=== PATIENT | female | born 1950 | race Caucasian/White ===

== ENCOUNTER 2021-09-26 16:18 | Inpatient (IN) | payer MEDICARE, SELFPAY ==
[2021-09-26] VITALS (8 sets, daily range): BP systolic 122–148; BP diastolic 83–110; PULSE 81–93; RESP 20–30; TEMP 36.2–36.6; O2SAT 90–94; BMI 36.6; BMI 43.1
--- NOTE | 2021-09-26 16:48 | EKG12_ITS ---
Test Reason : SOB Blood Pressure : / mmHG Vent. Rate : 092 BPM Atrial Rate : 092 BPM P-R Int : 188 ms QRS Dur : 062 ms QT Int : 356 ms P-R-T Axes : 069 -20 044 degrees QTc Int : 440 ms Normal sinus rhythm Low voltage QRS Borderline ECG Confirmed by CARL UNGER, DENISE ([id number]), editorial assistant NAHOMY ALLEN ([id number]) on 09/29/2021 10:53:55 AM Referred By: Confirmed By:DENISE HENRY MD
--- NOTE | 2021-09-26 16:49 | ED.VIS.DYS ---
HPI History of Present Illness Chief Complaint: Shortness of Breath Informant: patient and family Narrative Narrative: 71-year-old female history of COPD presented to the emergency room with hypoxia. She notes that this is been progressive over the past 3 weeks. She does note some cough but not really anything particularly different than normal. No reported fevers. No history of CHF or coronary artery disease. She has been using her mother's albuterol MDI without relief. She went to see urgent care and they noted that she was hypoxic in the 70s on room air and cyanotic. She has a history of COPD and has seen a anode rebuilder but she does not know which doctor. She does not wear home oxygen. She quit smoking 2 years ago. [facility] Medical History (Updated 09/26/21 @ 20:[address] Del Delgadillo DO) COPD (chronic obstructive pulmonary disease) Allergy/AdvReac Type Severity Reaction Status Date / Time No Known Allergies Allergy Verified 09/26/21 16:19 Social History (Updated 09/26/21 @ 16:[address] Del Delgadillo DO) Smoking Status: Former smoker substance use type: does not use ROS ROS ED Constitutional Constitutional ED: Denies chills, fever(s) or weight loss Eyes Eyes: Denies change in vision or diplopia ENT ENT ED: Denies ear pain, rhinorrhea or sore throat Cardiovascular Cardiovascular: Denies chest pain, orthopnea, palpitations or racing heartbeat Respiratory/Chest Respiratory/Chest: Reports dyspnea and dyspnea on exertion; Denies cough or orthopnea Gastrointestinal Gastrointestinal: Denies abdominal pain, diarrhea, nausea or vomiting Genitourinary Genitourinary ED: Denies dysuria, hematuria or urinary frequency Musculoskeletal Musculoskeletal: Denies arthralgias or myalgias Integumentary Denies abscess or rash Neurologic Neurologic: Denies headache(s) or weakness Psychiatric Psychiatric: Denies anxiety, depression, suicidal ideation or suicidal thoughts Endocrine Endocrinology: Denies polydipsia, polyphagia or polyuria Allergic/Immunologic Allergic/Immunologic ED: Denies mouth swelling, tongue swelling or urticaria EXAM Physical Exam Const Vital Signs: 09/26/21 16:19 09/26/21 17:17 09/26/21 17:30 Temperature 97.9 F Temperature Source Temporal Pulse Rate 91 93 81 Respiratory Rate 22 H 30 H 20 H Respiratory Effort Respiratory Depth Respiratory Pattern Normal Blood Pressure 148/87 H 136/83 H Blood Pressure Mean 107 100 Pulse Ox 93 91 Oxygen Delivery Method Nasal Cannula Nasal Cannula Oxygen Flow Rate (L/min) 4 3 09/26/21 17:32 Temperature Temperature Source Pulse Rate Respiratory Rate Respiratory Effort Normal Respiratory Depth Normal Respiratory Pattern Normal Blood Pressure Blood Pressure Mean Pulse Ox Oxygen Delivery Method Nasal Cannula Oxygen Flow Rate (L/min) 3 Positive well nourished, well developed and obese General Appearance ED: well developed Nutritional Appearance: obese HEENT Reports normocephalic, head/scalp atraumatic, TM's clear and moist mucous membranes atraumatic Tympanic Membrane ED: Yes TM's clear Eyes PERRL and EOMs intact bilaterally Neck no lymphadenopathy, supple and no JVD Resp normal respiratory effort and clear to auscultation bilaterally Auscultation: diminished lung sounds Cardio regular rate, regular rhythm and no murmurs GI normal to inspection, nondistended, normoactive bowel sounds and non-tender Palpation: soft Back/Spine no CVA tenderness and normal ROM Extremity normal to inspection General Extremety ED: Negative for edema General Extremity: Negative for edema Neuro oriented x3 and CN's II-XII intact bilaterally Sensorium / Orientation: alert Motor Exam: strength 5/5 throughout Psych mental status grossly normal Mood & Affect: Negative for depressed or tearful Skin no rashes or lesions noted and no wounds MDM MDM MDM Narrative Medical decision making narrative: White count 7.5 with a hemoglobin of 17.2 platelet count of 283. CMP showed a creatinine 1.13 and a BUN of 29. Lactic acid is normal at 1. Troponin high-sensitivity is 12. Beta natruretic peptide is 96.4. My interpretation of the chest x-ray is mild pulmonary edema with right pleural effusion. CTA of the chest was obtained which demonstrates right pleural effusion right lower lobe consolidation. No pulmonary embolism noted. There is a pericardial effusion noted. Patient received Rocephin azithromycin. Though I think primarily this may be CHF. Patient received 80 of Lasix IV. Plan is admission as she is requiring about 5 L nasal cannula at the current time. Lab Data Attestation: I reviewed the patient's lab results. Labs: Laboratory Results - last 24 hr 09/26/21 09/26/21 09/26/21 17:17 17:17 17:17 WBC 7.5 RBC 6.50 H Hgb 17.2 H Hct 58.8 H MCV 90.5 MCH 26.5 L MCHC 29.3 L RDW Std Deviation 63.7 H RDW Coeff of Chuy 20.3 H Plt Count 283 MPV 9.2 Immature Gran % (Auto) 0.300 Neut % (Auto) 82.1 H Lymph % (Auto) 10.7 L [place] % (Auto) 6.4 Eos % (Auto) 0.1 Baso % (Auto) 0.4 Absolute Neuts (auto) 6.2 Absolute Lymphs (auto) 0.80 L Nucleated RBC % 0.5 Platelet Estimate ADEQUATE RBC Morphology N CHROM Anisocytosis 2+ PT Cancelled INR Cancelled APTT Cancelled D-Dimer Quant (PE/DVT) Cancelled Sodium 133 L Potassium 5.0 Chloride 99 Carbon Dioxide 30.0 Anion Gap 4 L BUN 29 H Creatinine 1.13 H Estim Creat Clear Calc 36.12 Est GFR (MDRD) Af Amer 61 Est GFR (MDRD) Non-Af 50 L BUN/Creatinine Ratio 25.7 H Glucose 79 Lactic Acid Calcium 8.7 Total Bilirubin 0.80 AST 12 L ALT 19 Alkaline Phosphatase 104 Troponin I High Sens 12 B-Natriuretic Peptide Total Protein 7.4 Albumin 2.7 L Globulin 4.7 H Albumin/Globulin Ratio 0.6 L 09/26/21 09/26/21 09/26/21 17:17 17:17 18:19 WBC RBC Hgb Hct MCV MCH MCHC RDW Std Deviation RDW Coeff of [place] Plt Count MPV Immature Gran % (Auto) Neut % (Auto) Lymph % (Auto) [place] % (Auto) Eos % (Auto) Baso % (Auto) Absolute Neuts (auto) Absolute Lymphs (auto) Nucleated RBC % Platelet Estimate RBC Morphology Anisocytosis PT 15.0 H INR 1.3 APTT 28.8 D-Dimer Quant (PE/DVT) 0.45 Sodium Potassium Chloride Carbon Dioxide Anion Gap BUN Creatinine Estim Creat Clear Calc Est GFR (MDRD) Af Amer Est GFR (MDRD) Non-Af BUN/Creatinine Ratio Glucose Lactic Acid 1.0 Calcium Total Bilirubin AST ALT Alkaline Phosphatase Troponin I High Sens B-Natriuretic Peptide 496.4 H Total Protein Albumin Globulin Albumin/Globulin Ratio Radiography Diagnostic Testing: Clinical Impression(s) from Imaging Studies Chest X-Ray 09/26/21 17:45 IMPRESSION: Cardiomegaly with interstitial edema and small right pleural effusion. Electronically Signed: Todd Hutson MD at 18:32 EDT Tel , Service support , Chest CT 09/26/21 18:58 IMPRESSION: Right pleural effusion associated with right lower lobe consolidation. Cardiomegaly. Atherosclerosis. Pericardial effusion. Electronically Signed: Cecy Hunter MD at 20:00 EDT Tel , Service support , EKG Initial EKG: Attestation: I personally reviewed and interpreted this EKG as follows: Comments: Normal sinus rhythm with a ventricular rate of 92 bpm. Discharge Plan Dx/Rx/DC Orders Clinical Impression: Pleural effusion, CHF (congestive heart failure), Pneumonia, Acute hypoxemic respiratory failure, Pericardial effusion Disposition Disposition: Acute Care [facility]
[2021-09-26] MEDS: Ipratropium/Albuterol Sulfate 3 ML AMPUL.NEB INHALATION (17:17)
[2021-09-26 17:37] LABS: Absolute Neutrophil Count 6.2 X10^3/uL (2.0-7.7); Basophil# 0.03 X10^3/uL; Basophil% 0.4 % (0-1); Eosinophil# 0.01 X10^3/uL; Eosinophils% 0.1 % (0-5); Hemoglobin 17.2 g/dL (12.0-15.0); Lymphocyte % 10.7 % (19-41); Mean Corp Hgb Conc 29.3 g/dL (32-36); Mean Corpuscular Hgb 26.5 pg (27.0-32.0); Mean Corpuscular Volume 90.5 fL (81-99); Mean Platelet Vol. 9.2 fl (6.2-12.0); Monocyte# 0.48 X10^3/uL; Monocyte% 6.4 % (0-10); NRBC Flagged by Analyzer 0.5 % (0-5); Neutrophil # 6.15 X10^3/uL (2.7-7.7); Neutrophil % 82.1 % (47-70); POSITIVE MORPHOLOGY YES; Platelet Count 283 K/mm3 (150-450); RBC Distribution Width CV 20.3 % (11.6-14.6); RBC Distribution Width SD 63.7 fl (35.1-43.9); White Blood Count 7.5 K/mm3 (4.4-11.0)
[2021-09-26 17:43] LABS: Differential Indicated SCAN CRITERIA MET; Hematocrit 58.8 % (37-47)
--- NOTE | 2021-09-26 17:45 | RAD_ITS ---
INDICATION: dyspnea EXAMINATION/TECHNIQUE: X-RAY - XR Chest 1 View COMPARISON: None. FINDINGS: Increased interstitial markings. Tortuous and calcified thoracic aorta. The heart is moderately enlarged. Small right pleural effusion. No pneumothorax. No acute osseous abnormalities. RAD/Chest 1 View (Portable) IMPRESSION: Cardiomegaly with interstitial edema and small right pleural effusion. Electronically Signed: Todd Hutson MD at 18:32 EDT Tel , Service support ,
[2021-09-26 17:46] LABS: BNP,B-Type NATRIURETIC PEPTIDE 496.4 pg/mL (0-100)
[2021-09-26 17:50] LABS: ALB/GLOB Ratio 0.6 RATIO (0.9-2.4); AST(SGOT) 12 U/L (15-37); Alanine Aminotransfer ALT/SGPT 19 U/L (13-56); Albumin, Serum 2.7 g/dL (3.2-5.0); Alkaline Phosphatase 104 U/L (45-117); Anion Gap 4 (5-15); BUN 29 mg/dL (7-18); BUN/Creat Ratio 25.7 RATIO (10-20); Calcium,Total 8.7 mg/dL (8.5-10.1); Chloride 99 mmol/L (98-107); Creatinine, Serum 1.13 mg/dL (0.55-1.02); EST Glomerular Filtration Rate 50 mL/min (>60); Est Glom Filt Rate - Afr Amer 61 mL/min (>60); Estimated Creatinine Clearance 36.12 ml/min; Globulin 4.7 g/dL (2.2-4.2); Glucose 79 mg/dL (74-106); Protein, Total 7.4 g/dL (6.4-8.2); Sodium Level 133 mmol/L (136-145); Troponin-I HS 12 pg/mL (3.0-54.0)
[2021-09-26 18:26] LABS: Anisocytosis 2+; Platelet Estimate ADEQUATE (ADEQ); Red Cell Morphology N CHROM NORMAL (NORM C&C)
[2021-09-26 18:43] LABS: D-Dimer Quantitative (DVT/PE) 0.45 FEU/ug/m (0.27-0.49)
[2021-09-26 18:53] LABS: International Normalized Ratio 1.3
[2021-09-26 18:54] LABS: Partial Thromboplast Time 28.8 Seconds (24.1-36.2)
--- NOTE | 2021-09-26 18:58 | CT_ITS ---
STUDY: CT CHEST WITHOUT CONTRAST REASON FOR EXAM: Female, 71 years old. Dyspnea and hypoxia RADIATION DOSAGE (If Supplied By Facility): CTDIvol = ( 19.39 ) mGy, DLP = ( 654.25 ) mGycm TECHNIQUE: Transaxial imaging was performed without the administration of intravenous contrast material. Multiplanar coronal and sagittal images were reformatted. Individualized dose optimization techniques were used for this CT. COMPARISON: None. FINDINGS: There are emphysematous changes present. There is a right pleural effusion associated with consolidation within the right lower lobe. There is minimal bibasilar atelectasis and/or scarring. There are calcifications of the coronary arteries. There is a pericardial effusion measuring up to 9 mm. There are mitral annulus calcifications. There is cardiomegaly. Normal mediastinum. Normal hilar regions. Normal unenhanced pulmonary arteries. Normal aorta arch and descending thoracic aorta. There are multi-level degenerative changes of the thoracic spine. There is a subcutaneous low-attenuation focus within the lower back right of midline suggestive of a sebaceous cyst. There is no demonstrated abnormality of the visualized upper abdomen. CT/Chest without Contrast IMPRESSION: Right pleural effusion associated with right lower lobe consolidation. Cardiomegaly. Atherosclerosis. Pericardial effusion. Electronically Signed: Cecy Hunter MD at 20:00 EDT Tel , Service support ,
[2021-09-26] MEDS: Ceftriaxone 1 GM/50 ML BAG IV (21:10)
[2021-09-26] MEDS: Furosemide 100 MG/10 ML Vial 80 MG IV (21:10)
--- NOTE | 2021-09-26 21:29 | HP.PCM.HOS_ITS ---
HPI - General General Date of Admission: 09/26/21 Date of Service: 09/26/21 Chief Complaint: shortness of breath HPI Narrative CLIFFORD GALLARDO, is a 71 F who presents presents with 3 weeks of progressive shortness of breath. Urgent care and was found to be hypoxic with pulse ox of 70%. Since emergency room and patient had a CT scan that showed pleural effusion as well as pericardial effusion. In the emergency room, patient received furosemide, ceftriaxone, DuoNeb. Placed on oxygen her pulse ox was around 88 to 91% on 3 L nasal cannula. She is feeling better at this time. She does note that she has a history of COPD but denies any history of CHF. Patient notes that she has been on around 5 to 6 pounds over the past 8 to 10 months and has increasing lower extremity edema. [facility] Medical History COPD (chronic obstructive pulmonary disease) Allergy/AdvReac Type Severity Reaction Status Date / Time No Known Allergies Allergy Verified 09/26/21 16:19 Family History (Updated 09/26/21 @ 21:[address] Zack Rowland DO) Other Heart disease Social History Smoking Status: Former smoker substance use type: does not use ROS ROS Narrative No COVID-19 exposure. No fever or chills. Patient has been vaccinated for COVID-19. All review of systems were negative except as mentioned above in the history of present illness and the other review of systems. Vital Signs Vital Signs Vital Signs: 09/26/21 16:19 09/26/21 17:17 09/26/21 17:30 Temperature 36.6 C Temperature Source Temporal Pulse Rate 91 93 81 Respiratory Rate 22 H 30 H 20 H Respiratory Effort Respiratory Depth Respiratory Pattern Normal Blood Pressure 148/87 H 136/83 H Blood Pressure Mean 107 100 Pulse Ox 93 91 Oxygen Delivery Method Nasal Cannula Nasal Cannula Oxygen Flow Rate (L/min) 4 3 09/26/21 17:32 Temperature Temperature Source Pulse Rate Respiratory Rate Respiratory Effort Normal Respiratory Depth Normal Respiratory Pattern Normal Blood Pressure Blood Pressure Mean Pulse Ox Oxygen Delivery Method Nasal Cannula Oxygen Flow Rate (L/min) 3 Weight Weight: 90.718 kg Body Mass Index (BMI) 36.6 Physical Exam Const alert General Appearance: cooperative HEENT normocephalic and head/scalp atraumatic Eyes PERRL Neck no lymphadenopathy Resp Resp Narrative: bibasilar crackles. diminished Cardio regular rate, regular rhythm, S1 normal heart sound and S2 normal heart sound GI normal to inspection, nondistended, normoactive bowel sounds, soft to palpation, non-tender and non-distended Extremity Extremity Narrative: bilateral taut lower extremity edema. Skin no rashes or lesions noted and no wounds Neuro Sensorium / Orientation: awake and alert Psych affect normal Results Lab / Micro Data Attestation: I reviewed the patient's lab results. Result Diagrams: 09/26/21 17:17 09/26/21 17:17 Labs: Laboratory Results - last 24 hr 09/26/21 17:17: WBC 7.5, RBC 6.50 H, Hgb 17.2 H, Hct 58.8 H, MCV 90.5, MCH 26.5 L, MCHC 29.3 L, RDW Std Deviation 63.7 H, RDW Coeff of Chuy 20.3 H, Plt Count 283, MPV 9.2, Immature Gran % (Auto) 0.300, Neut % (Auto) 82.1 H, Lymph % (Auto) 10.7 L, [place] % (Auto) 6.4, Eos % (Auto) 0.1, Baso % (Auto) 0.4, Absolute Neuts (auto) 6.2, Absolute Lymphs (auto) 0.80 L, Nucleated RBC % 0.5, Platelet Estimate ADEQUATE, RBC Morphology N CHROM, Anisocytosis 2+ 09/26/21 17:17: PT Cancelled, INR Cancelled, APTT Cancelled, D-Dimer Quant (PE/DVT) Cancelled 09/26/21 17:17: Sodium 133 L, Potassium 5.0, Chloride 99, Carbon Dioxide 30.0, Anion Gap 4 L, BUN 29 H, Creatinine 1.13 H, Estim Creat Clear Calc 36.12, Est GFR (MDRD) Af Amer 61, Est GFR (MDRD) Non-Af 50 L, BUN/Creatinine Ratio 25.7 H, Glucose 79, Calcium 8.7, Total Bilirubin 0.80, AST 12 L, ALT 19, Alkaline Phosphatase 104, Troponin I High Sens 12, Total Protein 7.4, Albumin 2.7 L, Globulin 4.7 H, Albumin/Globulin Ratio 0.6 L 09/26/21 17:17: Lactic Acid 1.0 09/26/21 17:17: B-Natriuretic Peptide 496.4 H 09/26/21 18:19: PT 15.0 H, INR 1.3, APTT 28.8, D-Dimer Quant (PE/DVT) 0.45 Micro: Microbiology 09/26/21 18:03 Nasal Secretion SARS-CoV-2 Antigen (Rapid) - Final EKG Initial EKG: Attestation: I personally reviewed and interpreted this EKG as follows: Prior EKG tracings: available for review EKG Rhythm Intrepretation: Sinus Rhythm (low voltage.) Radiology Impression Chest X-Ray 09/26/21 17:45 IMPRESSION: Cardiomegaly with interstitial edema and small right pleural effusion. Electronically Signed: Todd Hutson MD at 18:32 EDT Tel , Service support , Chest CT 09/26/21 18:58 IMPRESSION: Right pleural effusion associated with right lower lobe consolidation. Cardiomegaly. Atherosclerosis. Pericardial effusion. Electronically Signed: Cecy Hunter MD at 20:00 EDT Tel , Service support , Assessment & Plan Assessment/Plan (1) Acute hypoxemic respiratory failure: (2) Pleural effusion: (3) CHF (congestive heart failure): QUALIFIERS: Heart failure type: unspecified Heart failure chronicity: acute Qualified Code(s): I50.9 - Heart failure, unspecified (4) Pericardial effusion: PLAN: 1. Acute hypoxic respiratory failure * Multifactorial due to acute exacerbation of CHF, pleural effusion, pericardial effusion and underlying COPD. May also have underlying sleep apnea but patient is never been diagnosed as such. * Wean oxygen as able * Consider home oxygen evaluation if patient is still requiring oxygen when she is ready for discharge 2. Acute CHF exacerbation * Patient received furosemide in emergency room and will continue on floor * Unclear type at this time, as patient has no prior history of CHF nor any prior echocardiogram * Will check echocardiogram * Make further adjustments such as lisinopril or carvedilol 3. Pleural effusion and pericardial effusion * Patient in no duress clinically no tamponade * Diuresis CHF 4. Possible acute exacerbation of COPD * No audible wheeze of the patient is very diminished * Bronchodilators start prednisone 5. VTE prophylaxis: Moderate risk. Enoxaparin 6. CODE STATUS: Addressed with the patient. Patient wishes to be full code. Charges/Coding Visit Charges Inpatient E&M: 94499 Init Hosp L3
--- NOTE | 2021-09-26 21:45 | ED.RN ---
PT DOES NOT HAVE HOME MEDICATION LIST WITH HER. DOES NOT KNOW HOME MEDS. MED REC INCOMPLETE.
--- NOTE | 2021-09-26 22:09 | ECHOD_ITS ---
Reason For Study: CHF Procedure This was a 2D Doppler, Color Flow transthoracic echocardiogram. The study was technically difficult. Did not use Definity due to increased PAP. Exam performed portable in patient room. Left Ventricle Normal LV size. Mild concentric left ventricular hypertrophy. Left ventricular systolic function is hyperdynamic. The estimated ejection fraction is 75 %. There is evidence of diastolic dysfunction. No regional wall motion abnormalities noted. Right Ventricle Moderately dilated right ventricle. Moderate global right ventricular systolic dysfunction. Atria The left atrium is mildly enlarged. The right atrium is moderately enlarged. No doppler evidence for ASD. Mitral Valve There is severe mitral annular calcification. Extension of the mitral annular calcification onto the base of the posterior mitral valve leaflet. Trivial mitral valve insufficiency. Tricuspid Valve Normal tricuspid valve. Mild tricuspid valve insufficiency. Right ventricular systolic pressure estimated to be 75 mmHg. Aortic Valve Trisinus/trileaflet aortic valve. Mild focal aortic valve calcification. Pulmonic Valve The pulmonic valve is not well visualized. Trivial pulmonic valve insufficiency. Great Vessels Normal sized aortic root. Pericardium/Pleural Trivial pericardial effusion. There are no echocardiographic indications of cardiac tamponade. MMode/2D Measurements & Calculations LVIDd: 3.7 cm IVSd: 1.3 cm LVOT diam: 1.8 cm LVIDs: 2.6 cm LVPWd: 1.3 cm LVOT area: 2.7 cm2 RVDd: 4.9 cm FS: 29.2 % Ao root diam: 2.8 cm LAV(MOD-bp): 49.8 ml LA A4 area: 19.1 cm2 LAV(MOD-bp) Indexed: 26.1 ml/m2 LAV(MOD-sp2): 49.6 ml LAV(MOD-sp4): 48.2 ml LA dimension(2D): 4.0 cm RA A4 area: 28.3 cm2 Time Measurements MV dec time: 0.34 sec Doppler Measurements & Calculations MV E max jai: 162.6 cm/sec Lat Peak E' Jai: 3.5 cm/sec Med Peak E' Jai: 3.7 cm/sec MV A max jai: 196.8 cm/sec E/E' lat: 46.7 E/E' med: 43.4 MV E/A: 0.83 MV V2 max: 214.0 cm/sec MV P1/2t max jai: 159.2 cm/sec Ao V2 max: 209.5 cm/sec MV max P.3 mmHg MV P1/2t: 101.7 msec Ao max P.6 mmHg MV V2 mean: 139.7 cm/sec MV dec slope: 458.6 cm/sec2 Ao V2 mean: 150.3 cm/sec MV mean P.6 mmHg Ao mean P.8 mmHg MV V2 VTI: 54.1 cm MVA(P1/2t): 2.2 cm2 Ao V2 VTI: 42.2 cm MVA(VTI): 1.8 cm2 NATHAN(I,D): 2.3 cm2 NATHAN(V,D): 2.1 cm2 LV V1 max: 165.4 cm/sec SV(LVOT): 97.1 ml PA V2 max: 138.7 cm/sec LV V1 max P.0 mmHg LV V1 mean P.6 mmHg LV V1 mean: 123.7 cm/sec LV V1 VTI: 36.5 cm TR max jai: 387.9 cm/sec TR max P.2 mmHg ECHO/Echo Complete Interpretation Summary The study was technically difficult. Left ventricular systolic function is hyperdynamic. The estimated ejection fraction is 75 %. Mild concentric left ventricular hypertrophy. Moderately dilated right ventricle. Moderate global right ventricular systolic dysfunction. The left atrium is mildly enlarged. The right atrium is moderately enlarged. There is severe mitral annular calcification. Extension of the mitral annular calcification onto the base of the posterior mi tral valve leaflet. Trivial mitral valve insufficiency. Mild tricuspid valve insufficiency. Mild focal aortic valve calcification. Trivial pulmonic valve insufficiency. Trivial pericardial effusion. There are no echocardiographic indications of cardiac tamponade. Right ventricular systolic pressure estimated to be 75 mmHg c/w severe pulmonar y hypertension. There is evidence of diastolic dysfunction. Ordering Physician: Zack Rowland Referring Physician: Mark Henry Performed By: Debra Smith RDCS, RVT
[2021-09-26] MEDS: predniSONE 20 MG Tablet 40 MG PO (22:48)
[2021-09-26] MEDS: guaiFENesin 600 MG Tablet PO (22:48)
[2021-09-26 23:46] LABS: Troponin-I HS 14 pg/mL (3.0-54.0)
[2021-09-27] VITALS (12 sets, daily range): BP systolic 94–148; BP diastolic 51–80; PULSE 86–94; RESP 16–18; TEMP 36.2–37; O2SAT 92–95
--- NOTE | 2021-09-27 07:27 | PCS.PANDOC ---
PANDEMIC DOCUMENTATION INITIATED: Date: 07/07/2021 Time: 190
[2021-09-27 08:39] LABS: Anion Gap 7 (5-15); BUN 31 mg/dL (7-18); BUN/Creat Ratio 27.2 RATIO (10-20); Calcium,Total 8.6 mg/dL (8.5-10.1); Chloride 98 mmol/L (98-107); Cholesterol 64 mg/dL (200); Creatinine, Serum 1.14 mg/dL (0.55-1.02); EST Glomerular Filtration Rate 50 mL/min (>60); Est Glom Filt Rate - Afr Amer 60 mL/min (>60); Glucose 126 mg/dL (74-106); High Density Lipoprotein 35 mg/dL; Potassium 5.7 mmol/L (3.5-5.1); Sodium Level 134 mmol/L (136-145); Thyroid Stim Hormone (TSH) 1.56 uIU/mL (0.358-3.74); Triglycerides 60 mg/dL; Very Low Density Lipoprotein 12 mg/dL (5-40)
[2021-09-27] MEDS: predniSONE 20 MG Tablet 40 MG PO (09:06)
[2021-09-27] MEDS: Enoxaparin 40 MG/0.4 ML Syringe SC (09:06)
[2021-09-27] MEDS: Furosemide 40 MG/4 ML Vial IV ×2 (09:07→17:08)
[2021-09-27] MEDS: 0.9% Saline Lock 10 ML Syringe IV ×2 (09:07→17:08)
[2021-09-27] MEDS: guaiFENesin 600 MG Tablet PO ×2 (09:08→21:34)
[2021-09-27] MEDS: Acetaminophen 325 MG Tablet 650 MG PO (09:08)
[2021-09-27 12:40] LABS: Potassium 5.7 mmol/L (3.5-5.1)
--- NOTE | 2021-09-27 13:06 | PN.HOSP_ITS ---
Documented by User: Gayathri Chavez NP-C 09/27/21 13:22 Subjective Subjective Patient seen and examined. Patient states that she is feeling improved in comparison to presentation to ER. Patient currently on 6 L nasal cannula oxygen satting well. Patient sitting in bed watching TV no distress noted. Objective Data Objective Data Vital Signs: Vital Signs Temp Pulse Resp BP Pulse Ox 98.5 F 91 18 148/80 H 95 09/27/21 12:53 09/27/21 12:53 09/27/21 12:53 09/27/21 12:53 09/27/21 12:53 Oxygen Flow Rate (L/min) 7 Oxygen Delivery Method Nasal Cannula Weight: 238 lb 12.17 oz Body Mass Index (BMI) 43.1 Intake & Output: Intake and Output for Last 24 Hours 09/25/21 09/26/21 09/27/21 23:59 23:59 23:59 Intake Total 305 / 305 300 / 300 Balance 305 / 305 300 / 300 Lab / Micro Data Result Diagrams: 09/26/21 17:17 09/27/21 12:20 Labs: Laboratory Results - last 24 hr 09/26/21 17:17: WBC 7.5, RBC 6.50 H, Hgb 17.2 H, Hct 58.8 H, MCV 90.5, MCH 26.5 L, MCHC 29.3 L, RDW Std Deviation 63.7 H, RDW Coeff of Chuy 20.3 H, Plt Count 283, MPV 9.2, Immature Gran % (Auto) 0.300, Neut % (Auto) 82.1 H, Lymph % (Auto) 10.7 L, [place] % (Auto) 6.4, Eos % (Auto) 0.1, Baso % (Auto) 0.4, Absolute Neuts (auto) 6.2, Absolute Lymphs (auto) 0.80 L, Nucleated RBC % 0.5, Platelet Estimate ADEQUATE, RBC Morphology N CHROM, Anisocytosis 2+ 09/26/21 17:17: PT Cancelled, INR Cancelled, APTT Cancelled, D-Dimer Quant (PE/DVT) Cancelled 09/26/21 17:17: Sodium 133 L, Potassium 5.0, Chloride 99, Carbon Dioxide 30.0, Anion Gap 4 L, BUN 29 H, Creatinine 1.13 H, Estim Creat Clear Calc 36.12, Est GFR (MDRD) Af Amer 61, Est GFR (MDRD) Non-Af 50 L, BUN/Creatinine Ratio 25.7 H, Glucose 79, Calcium 8.7, Total Bilirubin 0.80, AST 12 L, ALT 19, Alkaline Phosphatase 104, Troponin I High Sens 12, Total Protein 7.4, Albumin 2.7 L, Globulin 4.7 H, Albumin/Globulin Ratio 0.6 L 09/26/21 17:17: Lactic Acid 1.0 09/26/21 17:17: B-Natriuretic Peptide 496.4 H 09/26/21 18:19: PT 15.0 H, INR 1.3, APTT 28.8, D-Dimer Quant (PE/DVT) 0.45 09/26/21 22:50: Troponin I High Sens 14 09/27/21 07:20: Sodium 134 L, Potassium 5.7 H, Chloride 98, Carbon Dioxide 29.0, Anion Gap 7, BUN 31 H, Creatinine 1.14 H, Estim Creat Clear Calc 35.80, Est GFR (MDRD) Af Amer 60, Est GFR (MDRD) Non-Af 50 L, BUN/Creatinine Ratio 27.2 H, Glucose 126 H, Calcium 8.6, Triglycerides 60, Cholesterol 64, LDL Cholesterol 17, VLDL Cholesterol 12, HDL Cholesterol 35 L, TSH 1.56 09/27/21 12:20: Potassium 5.7 H Micro: Microbiology 09/26/21 18:03 Nasal Secretion SARS-CoV-2 Antigen (Rapid) - Final Radiography Diagnostic Testing: Radiology Impression Chest X-Ray 09/26/21 17:45 IMPRESSION: Cardiomegaly with interstitial edema and small right pleural effusion. Electronically Signed: Todd Hutson MD at 18:32 EDT Tel , Service support , Chest CT 09/26/21 18:58 IMPRESSION: Right pleural effusion associated with right lower lobe consolidation. Cardiomegaly. Atherosclerosis. Pericardial effusion. Electronically Signed: Cecy Hunter MD at 20:00 EDT Tel , Service support , Physical Exam Const alert, oriented x3 and no apparent distress General Appearance: cooperative HEENT normocephalic and head/scalp atraumatic Head and Scalp: normocephalic Eyes conjunctivae normal and no scleral icterus Neck full ROM, no lymphadenopathy and supple Resp normal respiratory effort and normal air movement Auscultation: rales diffuse and diminished lung sounds bilateral lower Cardio regular rate, regular rhythm, S1 normal heart sound and S2 normal heart sound GI normal to inspection, nondistended, normoactive bowel sounds, soft to palpation, non-tender and non-distended Extremity normal to inspection and full ROM General Extremity: edema bilateral lower extremity Details: severe Peripheral Pulses: Yes pulses 2+ throughout Skin no rashes or lesions noted and no wounds Neuro oriented x3, moves all extremities, no focal motor deficits and no sensory deficits noted Sensorium / Orientation: awake and alert Psych affect normal Assessment & Plan Assessment/Plan (1) CHF (congestive heart failure): QUALIFIERS: Heart failure chronicity: acute Heart failure type: unspecified Qualified Code(s): I50.9 - Heart failure, unspecified (2) Acute hypoxemic respiratory failure: PLAN: 1. Acute hypoxic respiratory failure -Secondary to exacerbation of CHF, pleural effusion, pericardial effusion, COPD -Patient currently on 6 L nasal cannula oxygen, continue to wean as able 2. Acute CHF exacerbation -Continue IV Lasix -1500 mL fluid restriction ordered -Continue lisinopril and hydrochlorothiazide -Echocardiogram ordered 3. Pleural effusion and pericardial effusion -Continue diuresis with Lasix 4. Possible acute exacerbation of COPD -Continue prednisone -Continue as needed albuterol as well scheduled DuoNebs DVT prophylaxis-subcu Lovenox This patient was seen by Gayathri Chavez NP-C under the supervision of Dr. Michaels. Documented by User: Dr. Kaleb Michaels MD 09/27/21 13:53 Objective Data Lab / Micro Data Result Diagrams: 09/26/21 17:17 09/27/21 12:20 Assessment & Plan Addt'l Comments This patient was seen in conjunction with ELIGIO Mueller . I have independently interviewed and examined the patient and reviewed pertinent historical, laboratory, and other data. Please refer to ELIGIO Mueller note for details of this patient's presentation, findings, and recommendations. I have reviewed ELIGIO Mueller note and concur with documented findings. In brief, patient is a 71-year-old lady sent in by PCP with significant hypoxia. She was apparently found to be hypoxic with oxygen saturation of 78% on room air. Imaging studies obtained on admission demonstrated right pleural effusion with associated right lower lobe consolidation as well as pericardial effusion. Admitted to a monitored bed for subsequent management Physical Examination: GENERAL: cooperative HEENT: Atraumatic; EYES; Anicteric, Normal Conjunctiva NECK; supple, normal thyroid, RESPIRATORY: Diminished to auscultation CARDIOVASCULAR: Regular S1 S2, GI: soft, normoactive bowel sounds, : No Renal angle tenderness; EXTREMITIES: No edema, no clubbing, MUSCULOSKELETAL: no muscle waisting NEURO: Awake; no lateralizing signs. SKIN: No Rash PSYCH; Flat affect Assessment: 1. Acute hypoxic respiratory failure 2. Right lower lobe pneumonia (has dense right lower lobe infiltrate, hypoxic, normal WBC count but significant left shift) 3. Suspected congestive heart failure 4. Pericardial effusion 5. COPD with acute exacerbation 6. Morbid obesity with BMI of 43.7 7. Diabetes mellitus type 2 8. Dyslipidemia 9. Essential hypertension Recommendations: 1. I have discussed the results of my overview and impressions with the patient 2. Options for management were reviewed Charges/Coding Visit Charges Inpatient E&M: 98535 Subs Hosp L3
[2021-09-27] MEDS: Sodium Polystyrene Sulfonate 15 GM/60 ML UDC 30 GM PO (14:52)
--- NOTE | 2021-09-27 15:50 | CASEMGMT ---
RN AIDEN [employer] SETTER CM to room to meet with patient for initial transition planning/care coordination assessment. RENITA WOLFE introduced self and role at [facility]. Pt voices understanding and consents to assessment at this time. Pt sitting on edge of bed in no distress at this time. Pt is A/O at this time and answers all questions appropriately. Care providers, pharmacy, and demographics verified/updated at this time. PCP: Dr Henry Specialists: none Preferred Pharmacy: [facility] [employer] Insurance: [employer] Prescription Benefit: Yes Living Will/HPOA: Has both LW and HPOA, who is her grandson, Rehan Loera LNOK: Grandson/POA: Rehan. Mother Living Arrangements: Pt lives w/Rehan and her mother. Independent w/ADL's. Rehan does home mgmt tasks and grocery shopping. Pt manages her own medications and appts. Transportation: Pt states drives self and states no transportation concerns at this time. Rehan also drives. DME: Denies using any DME and denies needs. Mother uses a shower chair that pt could use, if needed. Pt does not have Home O2. Discussed possible need of home O2. Pt was provided with list of DME providers consistent with the patient's preferred geographic region, medical needs, and insurance network. The pt's preferred provider is [facility]. . HHC/SNF: No hx of either. Denies needs of HHC. Pt made aware, if she decides in the future she would like HHC to discuss this w/her PCP. Pt wishes to return home and states has no concerns with going home at time of discharge. CM or nursing to follow for home oxygen needs and any further discharge planning/needs. Pt voices no further concerns/needs at this time. Advised pt to ask for CM if any further questions/concerns/needs arise. Voices understanding. PLAN: Home w/family support and discharge plans in place. Pt states has not been diagnosed w/CHF. Nursing to do CHF teaching. RNMelina, barbara Green sheet placed on chart w/instructions on home O2 set up if pt qualifies for Home O2 @ discharge. Dino JEWELL RN, CM
[2021-09-27 16:16] LABS: M R Staph aureus DNA By PCR Negative (Negative); Probe Check PASS; Specimen Processing Control PASS
[2021-09-27] MEDS: Insulin Lispro 100 UNIT/ML INSULN.PEN SC (16:33)
[2021-09-27 16:35] LABS: Bedside Glucose 177 mg/dL (70-110)
[2021-09-27] MEDS: Albuterol 2.5 MG/3 ML VIAL.NEB. INHALATION (20:39)
[2021-09-27] MEDS: Atorvastatin Calcium 20 MG Tablet PO (21:34)
[2021-09-27 21:45] LABS: Bedside Glucose 133 mg/dL (70-110)
[2021-09-28] VITALS (24 sets, daily range): BP systolic 83–121; BP diastolic 48–64; PULSE 77–105; RESP 16–22; TEMP 35.9–36.8; O2SAT 88–97
[2021-09-28] MEDS: Albuterol 2.5 MG/3 ML VIAL.NEB. INHALATION (00:16)
[2021-09-28] MEDS: MELATONIN 3 MG TABLET PO (00:31)
[2021-09-28] MEDS: Ipratropium/Albuterol Sulfate 3 ML AMPUL.NEB INHALATION ×6 (01:58→22:27)
--- NOTE | 2021-09-28 03:15 | PCS.PANDOC ---
PANDEMIC DOCUMENTATION INITIATED: Date: 07/07/2021 Time: 190
[2021-09-28 06:51] LABS: Bedside Glucose 113 mg/dL (70-110)
[2021-09-28 07:34] LABS: Absolute Lymphocyte Count 0.98 X10^3/uL (0.83-4.51); Absolute Neutrophil Count 6.6 X10^3/uL (2.0-7.7); Basophil# 0.01 X10^3/uL; Basophil% 0.1 % (0-1); Hemoglobin 16.5 g/dL (12.0-15.0); Lymphocyte # 0.98 X10^3/ul (0.83-4.51); Lymphocyte % 11.6 % (19-41); Mean Corp Hgb Conc 27.7 g/dL (32-36); Mean Corpuscular Hgb 26.1 pg (27.0-32.0); Mean Corpuscular Volume 94.3 fL (81-99); Mean Platelet Vol. 9.3 fl (6.2-12.0); Monocyte# 0.81 X10^3/uL; Monocyte% 9.6 % (0-10); NRBC Flagged by Analyzer 0.2 % (0-5); Neutrophil # 6.62 X10^3/uL (2.7-7.7); Neutrophil % 78.3 % (47-70); POSITIVE MORPHOLOGY YES; Platelet Count 261 K/mm3 (150-450); RBC Distribution Width CV 20.2 % (11.6-14.6); RBC Distribution Width SD 66.8 fl (35.1-43.9); Red Blood Count 6.32 M/mm3 (4.2-5.4); White Blood Count 8.5 K/mm3 (4.4-11.0)
[2021-09-28 07:43] LABS: Differential Indicated SCAN CRITERIA MET; Hematocrit 59.6 % (37-47)
[2021-09-28] MEDS: predniSONE 20 MG Tablet 40 MG PO (08:10)
[2021-09-28] MEDS: guaiFENesin 600 MG Tablet PO ×2 (08:11→19:48)
[2021-09-28] MEDS: Enoxaparin 40 MG/0.4 ML Syringe SC (08:11)
[2021-09-28 08:22] LABS: ALB/GLOB Ratio 0.5 RATIO (0.9-2.4); AST(SGOT) 15 U/L (15-37); Alanine Aminotransfer ALT/SGPT 18 U/L (13-56); Albumin, Serum 2.4 g/dL (3.2-5.0); Alkaline Phosphatase 88 U/L (45-117); Anion Gap 8 (5-15); BUN 41 mg/dL (7-18); BUN/Creat Ratio 26.3 RATIO (10-20); Calcium,Total 8.7 mg/dL (8.5-10.1); Chloride 96 mmol/L (98-107); Creatinine, Serum 1.56 mg/dL (0.55-1.02); EST Glomerular Filtration Rate 35 mL/min (>60); Est Glom Filt Rate - Afr Amer 42 mL/min (>60); Estimated Creatinine Clearance 26.16 ml/min; Globulin 4.6 g/dL (2.2-4.2); Glucose 85 mg/dL (74-106); Potassium 4.9 mmol/L (3.5-5.1); Sodium Level 132 mmol/L (136-145)
[2021-09-28 08:48] LABS: Anisocytosis 2+; Platelet Estimate ADEQUATE (ADEQ); Polychromasia 1+
[2021-09-28] MEDS: Furosemide 40 MG/4 ML Vial IV ×2 (10:54→17:17)
[2021-09-28] MEDS: 0.9% Saline Lock 10 ML Syringe IV (10:54)
--- NOTE | 2021-09-28 11:51 | PCM.PN.HOSP ---
Documented by User: Gayathri Chavez NP-C 09/28/21 12:02 Subjective Subjective Patient seen and examined. Patient states that she is feeling more short of breath today, currently needing 10 L nasal cannula oxygen otherwise patient states that she has no complaints denies other headache is feeling okay. Objective Data Objective Data Vital Signs: Vital Signs Temp Pulse Resp BP Pulse Ox 97.2 F L 88 20 H 93/57 L 97 09/28/21 08:00 09/28/21 10:46 09/28/21 10:46 09/28/21 08:00 09/28/21 08:00 Oxygen Flow Rate (L/min) 11 Oxygen Delivery Method Nasal Cannula Weight: 245 lb 8 oz Body Mass Index (BMI) 43.1 Intake & Output: Intake and Output for Last 24 Hours 09/26/21 09/27/21 09/28/21 23:59 23:59 22:59 Intake Total 305 / 305 905 / 1724 1224 / 1224 Balance 305 / 305 905 / 1724 1224 / 1224 Lab / Micro Data Result Diagrams: 09/28/21 05:35 09/28/21 05:35 Labs: Laboratory Results - last 24 hr 09/27/21 14:36: MRSA (PCR) Negative 09/27/21 16:30: POC Glucose 177 H 09/27/21 21:31: POC Glucose 133 H 09/28/21 05:35: WBC 8.5, RBC 6.32 H, Hgb 16.5 H, Hct 59.6 H, MCV 94.3, MCH 26.1 L, MCHC 27.7 L D, RDW Std Deviation 66.8 H, RDW Coeff of Chuy 20.2 H, Plt Count 261, MPV 9.3, Immature Gran % (Auto) 0.400, Neut % (Auto) 78.3 H, Lymph % (Auto) 11.6 L, [place] % (Auto) 9.6, Eos % (Auto) 0.0, Baso % (Auto) 0.1, Absolute Neuts (auto) 6.6, Absolute Lymphs (auto) 0.98, Nucleated RBC % 0.2, Platelet Estimate ADEQUATE, Polychromasia 1+, Anisocytosis 2+ 09/28/21 05:35: Sodium 132 L, Potassium 4.9, Chloride 96 L, Carbon Dioxide 28.0, Anion Gap 8, BUN 41 H, Creatinine 1.56 H, Estim Creat Clear Calc 26.16, Est GFR (MDRD) Af Amer 42 L, Est GFR (MDRD) Non-Af 35 L, BUN/Creatinine Ratio 26.3 H, Glucose 85, Calcium 8.7, Total Bilirubin 0.50, AST 15, ALT 18, Alkaline Phosphatase 88, Total Protein 7.0, Albumin 2.4 L, Globulin 4.6 H, Albumin/Globulin Ratio 0.5 L 09/28/21 06:41: POC Glucose 113 H Micro: Microbiology 09/27/21 15:05 Mucosa - Nasopharyngeal Respiratory Panel (PCR) - Final 09/26/21 18:03 Nasal Secretion SARS-CoV-2 Antigen (Rapid) - Final Radiography Diagnostic Testing: Radiology Impression Echocardiogram 09/26/21 22:09 Interpretation Summary The study was technically difficult. Left ventricular systolic function is hyperdynamic. The estimated ejection fraction is 75 %. Mild concentric left ventricular hypertrophy. Moderately dilated right ventricle. Moderate global right ventricular systolic dysfunction. The left atrium is mildly enlarged. The right atrium is moderately enlarged. There is severe mitral annular calcification. Extension of the mitral annular calcification onto the base of the posterior mitral valve leaflet. Trivial mitral valve insufficiency. Mild tricuspid valve insufficiency. Mild focal aortic valve calcification. Trivial pulmonic valve insufficiency. Trivial pericardial effusion. There are no echocardiographic indications of cardiac tamponade. Right ventricular systolic pressure estimated to be 75 mmHg c/w severe pulmonary hypertension. There is evidence of diastolic dysfunction. Ordering Physician: Zack Rowland Referring Physician: Mark Henry Performed By: Debra Smith, RDCS, RVT Physical Exam Const alert, oriented x3 and no apparent distress General Appearance: cooperative HEENT normocephalic and head/scalp atraumatic Eyes conjunctivae normal and no scleral icterus Neck full ROM, no lymphadenopathy and supple Resp normal respiratory effort and normal air movement Auscultation: crackles bilateral lower, rales diffuse and diminished lung sounds bilateral lower Cardio regular rate, regular rhythm, S1 normal heart sound and S2 normal heart sound GI normal to inspection, nondistended, normoactive bowel sounds, soft to palpation, non-tender and non-distended Extremity normal to inspection and full ROM Extremity Narrative: bilateral taut lower extremity edema. General Extremity: edema bilateral lower extremity Details: severe Skin no rashes or lesions noted and no wounds Neuro oriented x3, moves all extremities, no focal motor deficits and no sensory deficits noted Sensorium / Orientation: awake and alert Psych affect normal Assessment & Plan Assessment/Plan (1) Pleural effusion: (2) CHF (congestive heart failure): QUALIFIERS: Heart failure chronicity: acute Heart failure type: unspecified Qualified Code(s): I50.9 - Heart failure, unspecified (3) Pneumonia: QUALIFIERS: Laterality: right Lung location: lower lobe of lung Pneumonia type: due to unspecified organism Qualified Code(s): J18.9 - Pneumonia, unspecified organism (4) Acute hypoxemic respiratory failure: (5) Pericardial effusion: PLAN: Patient is a 71-year-old female who presented with acute respiratory distress with hypoxia. Patient was noted to have pleural and pericardial effusions on chest x-ray as well as infiltrates. Patient was admitted for CHF exacerbation as well as right lower lobe pneumonia 1. Acute hypoxic respiratory failure -Secondary to exacerbation of CHF, pleural effusion, pericardial effusion, COPD -Patient currently on 10L nasal cannula oxygen, continue to wean as able -Due to increased oxygen needs will obtain repeat chest x-ray 2. Acute CHF exacerbation -Continue IV Lasix -1500 mL fluid restriction ordered -Continue to hold lisinopril and hydrochlorothiazide -Echocardiogram ordered 3. Pleural effusion and pericardial effusion -Continue diuresis with Lasix 4. Right lower lobe pneumonia -Continue azithromycin and Zosyn -Continue prednisone -Continue scheduled DuoNeb's as well as as needed albuterol treatments -Sputum culture ordered, blood cultures pending 5. Hypokalemia -Resolved following administration of Kayexalate x1 dose yesterday -Daily BMP DVT prophylaxis-subcu Lovenox This patient was seen by Gayathri Chavez NP-C under the supervision of Dr. Michaels. Documented by User: Dr. Kaleb Michaels MD 09/28/21 12:47 Objective Data Lab / Micro Data Result Diagrams: 09/28/21 05:35 09/28/21 05:35 Assessment & Plan Addt'l Comments This patient was seen in conjunction with ELIGIO Mueller . I have independently interviewed and examined the patient and reviewed pertinent historical, laboratory, and other data. Please refer to ELIGIO Mueller note for details of this patient's presentation, findings, and recommendations. I have reviewed ELIGIO Mueller note and concur with documented findings. In brief, patient is a 71-year-old lady sent in by PCP with significant hypoxia. She was apparently found to be hypoxic with oxygen saturation of 78% on room air. Imaging studies obtained on admission demonstrated right pleural effusion with associated right lower lobe consolidation as well as pericardial effusion. Admitted to a monitored bed for subsequent management 09/28/2021; patient seen breathing still remains labored Physical Examination: GENERAL: cooperative HEENT: Atraumatic; EYES; Anicteric, Normal Conjunctiva NECK; supple, normal thyroid, RESPIRATORY: Diminished to auscultation CARDIOVASCULAR: Regular S1 S2, GI: soft, normoactive bowel sounds, : No Renal angle tenderness; EXTREMITIES: No edema, no clubbing, MUSCULOSKELETAL: no muscle waisting NEURO: Awake; no lateralizing signs. SKIN: No Rash PSYCH; Flat affect Assessment: 1. Acute hypoxic respiratory failure 2. Right lower lobe pneumonia (has dense right lower lobe infiltrate, hypoxic, normal WBC count but significant left shift) 3. Suspected congestive heart failure 4. Pericardial effusion 5. COPD with acute exacerbation 6. Morbid obesity with BMI of 43.7 7. Diabetes mellitus type 2 8. Dyslipidemia 9. Essential hypertension Recommendations: 1. I have discussed the results of my overview and impressions with the patient 2. Options for management were reviewed Charges/Coding Visit Charges Inpatient E&M: 67821 Subs Hosp L3 Hospital Course Imaging Results Imaging Results: 09/28/21 12:01 Chest 1 View (Portable) [RAD] Urgent
[2021-09-28] MEDS: Insulin Lispro 100 UNIT/ML INSULN.PEN SC ×3 (11:58→19:49)
[2021-09-28 12:10] LABS: Bedside Glucose 172 mg/dL (70-110)
--- NOTE | 2021-09-28 12:25 | RAD_ITS ---
STUDY: X-RAY CHEST REASON FOR EXAM: Female, 71 years old. increased oxygen needs TECHNIQUE: Frontal portable view of the chest COMPARISON: 26 September 2021 FINDINGS: Appearance is stable since prior. Heart is severely enlarged. There is moderate pulmonary edema. There are likely small bilateral pleural effusions and basal atelectasis. Due to increased lung ranging in interstitial markings detection of a separate lung disease such as viral pneumonia is not possible. Osseous structures are intact. RAD/Chest 1 View (Portable) IMPRESSION: 1. Stable since prior. 2. Severe cardiomegaly, moderate pulmonary edema. 3. Limited assessment of lung parenchyma. Electronically Signed: Jac Hinton MD at 13:18 EST Tel , Service support ,
[2021-09-28] MEDS: Acetaminophen 325 MG Tablet 650 MG PO (17:08)
[2021-09-28 17:20] LABS: Bedside Glucose 152 mg/dL (70-110)
[2021-09-28] MEDS: Atorvastatin Calcium 20 MG Tablet PO (19:48)
[2021-09-28 19:56] LABS: Bedside Glucose 168 mg/dL (70-110)
[2021-09-29] VITALS (15 sets, daily range): BP systolic 105–142; BP diastolic 57–74; PULSE 83–112; RESP 16–70; TEMP 36.4–36.8; O2SAT 87–95
[2021-09-29 05:35] LABS: Absolute Lymphocyte Count 0.85 X10^3/uL (0.83-4.51); Absolute Neutrophil Count 6.4 X10^3/uL (2.0-7.7); Basophil# 0.01 X10^3/uL; Basophil% 0.1 % (0-1); Hematocrit 54.1 % (37-47); Hemoglobin 15.6 g/dL (12.0-15.0); Lymphocyte # 0.85 X10^3/ul (0.83-4.51); Lymphocyte % 10.7 % (19-41); Mean Corp Hgb Conc 28.8 g/dL (32-36); Mean Corpuscular Hgb 26.9 pg (27.0-32.0); Mean Corpuscular Volume 93.3 fL (81-99); Monocyte# 0.63 X10^3/uL; Monocyte% 7.9 % (0-10); NRBC Flagged by Analyzer 0.3 % (0-5); Neutrophil # 6.38 X10^3/uL (2.7-7.7); Neutrophil % 80.2 % (47-70); POSITIVE MORPHOLOGY YES; Platelet Count 211 K/mm3 (150-450); RBC Distribution Width CV 19.9 % (11.6-14.6); RBC Distribution Width SD 66.4 fl (35.1-43.9)
[2021-09-29 05:43] LABS: Differential Indicated SCAN CRITERIA MET
[2021-09-29 06:02] LABS: ALB/GLOB Ratio 0.6 RATIO (0.9-2.4); AST(SGOT) 10 U/L (15-37); Alanine Aminotransfer ALT/SGPT 18 U/L (13-56); Albumin, Serum 2.4 g/dL (3.2-5.0); Alkaline Phosphatase 73 U/L (45-117); Anion Gap 5 (5-15); BUN 53 mg/dL (7-18); BUN/Creat Ratio 29.1 RATIO (10-20); Calcium,Total 8.4 mg/dL (8.5-10.1); Chloride 97 mmol/L (98-107); Creatinine, Serum 1.82 mg/dL (0.55-1.02); EST Glomerular Filtration Rate 29 mL/min (>60); Est Glom Filt Rate - Afr Amer 35 mL/min (>60); Estimated Creatinine Clearance 22.42 ml/min; Globulin 4.1 g/dL (2.2-4.2); Glucose 93 mg/dL (74-106); Potassium 4.7 mmol/L (3.5-5.1); Protein, Total 6.5 g/dL (6.4-8.2); Sodium Level 135 mmol/L (136-145)
[2021-09-29 06:11] LABS: Bedside Glucose 90 mg/dL (70-110)
[2021-09-29] MEDS: Ipratropium/Albuterol Sulfate 3 ML AMPUL.NEB INHALATION ×5 (06:40→22:48)
[2021-09-29 07:57] LABS: Anisocytosis 3+; Polychromasia 1+
[2021-09-29] MEDS: 0.9% Saline Lock 10 ML Syringe IV (08:38)
[2021-09-29] MEDS: Furosemide 40 MG/4 ML Vial IV (08:38)
[2021-09-29] MEDS: predniSONE 20 MG Tablet 40 MG PO (08:39)
[2021-09-29] MEDS: guaiFENesin 600 MG Tablet PO (08:39)
[2021-09-29] MEDS: Enoxaparin 40 MG/0.4 ML Syringe SC (08:39)
[2021-09-29] MEDS: guaiFENesin 1,200 MG Tablet 1200 MG PO ×2 (11:06→21:16)
[2021-09-29] MEDS: Insulin Lispro 100 UNIT/ML INSULN.PEN SC ×3 (11:14→21:16)
[2021-09-29 11:16] LABS: Bedside Glucose 181 mg/dL (70-110)
--- NOTE | 2021-09-29 12:16 | PN.HOSP_ITS ---
Documented by User: Gayathri Chavez NP-C 09/29/21 12:27 Subjective Subjective Patient seen and examined. Patient states that she is feeling about the same as yesterday. Patient continues to have high oxygen requirements, currently on 11 L nasal cannula oxygen. Objective Data Objective Data Vital Signs: Vital Signs Temp Pulse Resp BP Pulse Ox 97.6 F L 83 16 105/57 L 95 09/29/21 11:28 09/29/21 11:28 09/29/21 11:28 09/29/21 11:28 09/29/21 11:28 Oxygen Flow Rate (L/min) 11 Oxygen Delivery Method Nasal Cannula Weight: 245 lb 8 oz Body Mass Index (BMI) 43.1 Intake & Output: Intake and Output for Last 24 Hours 09/28/21 09/28/21 09/29/21 00:59 23:59 23:59 Intake Total 50 / 50 Output Total Balance 50 / 50 Lab / Micro Data Result Diagrams: 09/29/21 05:20 09/29/21 05:20 Labs: Laboratory Results - last 24 hr 09/28/21 17:03: POC Glucose 152 H 09/28/21 19:42: POC Glucose 168 H 09/29/21 05:20: WBC 8.0, RBC 5.80 H, Hgb 15.6 H, Hct 54.1 H, MCV 93.3, MCH 26.9 L, MCHC 28.8 L, RDW Std Deviation 66.4 H, RDW Coeff of Chuy 19.9 H, Plt Count 211, MPV 9.0, Immature Gran % (Auto) 1.100 H, Neut % (Auto) 80.2 H, Lymph % (Auto) 10.7 L, [place] % (Auto) 7.9, Eos % (Auto) 0.0, Baso % (Auto) 0.1, Absolute Neuts (auto) 6.4, Absolute Lymphs (auto) 0.85, Nucleated RBC % 0.3, P olychromasia 1+, Anisocytosis 3+ 09/29/21 05:20: Sodium 135 L, Potassium 4.7, Chloride 97 L, Carbon Dioxide 33.0 H, Anion Gap 5, BUN 53 H, Creatinine 1.82 H, Estim Creat Clear Calc 22.42, Est GFR (MDRD) Af Amer 35 L, Est GFR (MDRD) Non-Af 29 L, BUN/Creatinine Ratio 29.1 H , Glucose 93, Calcium 8.4 L, Total Bilirubin 0.50, AST 10 L, ALT 18, Alkaline Phosphatase 73, Total Protein 6.5, Albumin 2.4 L, Globulin 4.1, Albumin/Globulin Ratio 0.6 L 09/29/21 06:04: POC Glucose 90 09/29/21 11:12: POC Glucose 181 H Micro: Microbiology 09/26/21 18:19 Blood Culture (Wb) - Anticubital Right Blood Culture - Preliminary No growth in 48 hours. 09/26/21 17:17 Blood Culture (Wb) - Anticubital Left Blood Culture - Preliminary No growth in 48 hours. 09/27/21 15:05 Mucosa - Nasopharyngeal Respiratory Panel (PCR) - Final 09/26/21 18:03 Nasal Secretion SARS-CoV-2 Antigen (Rapid) - Final Radiography Diagnostic Testing: Radiology Impression Chest X-Ray 09/28/21 12:25 IMPRESSION: 1. Stable since prior. 2. Severe cardiomegaly, moderate pulmonary edema. 3. Limited assessment of lung parenchyma. Electronically Signed: Jac Hinton MD at 13:18 EST Tel , Service support , Physical Exam Const alert, oriented x3 and no apparent distress General Appearance: cooperative HEENT normocephalic and head/scalp atraumatic Eyes conjunctivae normal and no scleral icterus Neck full ROM, no lymphadenopathy and supple Resp normal respiratory effort and normal air movement Resp Narrative: bibasilar crackles. diminished Auscultation: crackles bilateral lower, rales diffuse and diminished lung sounds bilateral lower Cardio regular rate, regular rhythm, S1 normal heart sound and S2 normal heart sound GI normal to inspection, nondistended, normoactive bowel sounds, soft to palpation, non-tender and non-distended Extremity normal to inspection and full ROM Extremity Narrative: bilateral taut lower extremity edema. General Extremity: edema bilateral lower extremity Details: severe Skin no rashes or lesions noted and no wounds Neuro oriented x3, moves all extremities, no focal motor deficits and no sensory deficits noted Sensorium / Orientation: awake and alert Psych affect normal Assessment & Plan Assessment/Plan (1) Pleural effusion: (2) CHF (congestive heart failure): QUALIFIERS: Heart failure chronicity: acute Heart failure type: unspecified Qualified Code(s): I50.9 - Heart failure, unspecified (3) Pneumonia: QUALIFIERS: Laterality: right Lung location: lower lobe of lung Pneumonia type: due to unspecified organism Qualified Code(s): J18.9 - Pn eumonia, unspecified organism (4) Acute hypoxemic respiratory failure: (5) Pericardial effusion: PLAN: Patient is a 71-year-old female who presented with acute respiratory distress with hypoxia. Patient was noted to have pleural and pericardial effusions on chest x-ray as well as infiltrates. Patient was admitted for CHF exacerbation as well as right lower lobe pneumonia 1. Acute hypoxic respiratory failure -Secondary to exacerbation of CHF, pleural effusion, pericardial effusion, COPD -Patient currently on 11L nasal cannula oxygen, continue to wean as able -Due to increased oxygen needs will obtain repeat chest x-ray -Dr. Mason consulted, patient states that she has a diagnosis of COPD however she is not currently on any treatment. -Encourage incentive spirometry and Pep therapy -CPAP ordered due to suspicion of obstructive sleep apnea 2. Acute CHF exacerbation -Lasix transitioned from IV back to p.o. -1500 mL fluid restriction ordered -Continue to hold lisinopril and hydrochlorothiazide -Echocardiogram ordered 3. Pleural effusion and pericardial effusion -Continue diuresis with Lasix 4. Right lower lobe pneumonia -Continue azithromycin and Zosyn -Continue prednisone -Continue scheduled DuoNeb's as well as as needed albuterol treatments -Sputum culture ordered, blood cultures pending -P.o. Mucinex increased from 600 mg to 1200 mg twice daily 5. Acute kidney injury -Creatinine 1.8 today, will change IV Lasix back to p.o. Lasix -Daily BMP 6. Hypokalemia -Resolved -Daily BMP DVT prophylaxis-subcu Lovenox This patient was seen by Gayathri Chavez, KYLE-C under the supervision of Dr. Guzman. Documented by User: Dr. Radha Guzman DO 09/29/21 17:21 Subjective Subjective Patient was seen in conjunction with Gayathri Damon NP. The following is representation my independent history and physical examination. Please see below for any addendum to the above. The patient remains on 11 L of oxygen and states she is overall feeling better but she is not urinating much at this point despite her diuretics. She states that all of this started approximately 3 weeks ago and she followed up an [employer] because she could not get an appointment with her primary care physician. She has a significant history of tobacco abuse. She admits to snoring at night but has no diagnosis of sleep apnea. She is morbidly obese with a BMI of 44.9. Although she is feeling better I cannot explain why she is still requiring 11 L of oxygen. Objective Data Lab / Micro Data Result Diagrams: 09/29/21 05:20 09/29/21 05:20 Physical Exam Const alert, oriented x3 and no apparent distress Constitutional Narrative: Morbidly obese white female sitting up on the edge of the bed, appears comfortable, nontoxic, currently on 11 L nasal cannula Exam Limitations: no limitations Nutritional Appearance: morbidly obese HEENT head/scalp atraumatic and moist oral mucous membranes HEENT Narrative: Trachea midline, short thick neck, Mallampati 3-4, no thrush Head and Scalp: normocephalic Eyes PERRL, EOMs intact bilaterally and conjunctivae normal Neck supple, no JVD and no carotid bruits Neck Narrative: Short thick neck Resp normal respiratory effort, no retractions, no use of accessory muscles and clear to auscultation bilaterally Resp Narrative: Diffusely diminished Auscultation: Negative for crackles, rales, rhonchi or wheezes Cardio regular rate, regular rhythm, S1 normal heart sound, S2 normal heart sound, no murmurs, no rub, no gallops, no clicks and no JVD Cardio Narrative: Distant heart tones secondary to body habitus GI normal to inspection, nondistended, normoactive bowel sounds, soft to palpation, non-tender and non-distended Extremity Extremity Narrative: No clubbing or cyanosis General Extremity: edema Peripheral Pulses: Yes pulses 2+ throughout Skin no rashes or lesions noted, no wounds, skin turgor normal, no jaundice, no petechiae and no mottling Neuro oriented x3, CN's II-XII intact bilaterally, moves all extremities and no focal motor deficits Sensorium / Orientation: awake and alert Speech: speech normal Psych affect normal Assessment & Plan Assessment/Plan (1) Acute hypoxemic respiratory failure: (2) Cor pulmonale, chronic: (3) PAH (pulmonary arterial hypertension) with portal hypertension: (4) Morbid obesity: (5) TAYLER (acute kidney injury): PLAN: Assessment: Acute hypoxic respiratory failure PAH who group 3 TAYLER COPD Small right pleural effusion Morbid obesity Acute decompensated right and diastolic heart failure Suspected ANAY Hyperlipidemia Hypertension DM-2 Plan: -Echo shows normal EF but severely elevated pulmonary pressures consistent with cor pulmonale and pulmonary artery hypertension who group 3 as well as a dilated RV -Anticipate that she has chronic hypoxia given clubbing her dilated RV and elevated pulmonary pressures with chronic edema and erythrocytosis -Check AutoPap -D-dimer was negative -Recommended outpatient PFTs and sleep study -Doubt infection will discontinue antibiotics -Pulmonary consult -Change IV diuretics to oral -Hold lisinopril and HCTZ -Hold home glimepiride and utilize SSI with Accu-Cheks -We will continue steroids at this time and discuss further with pulmonology Sharon Charges/Coding Visit Charges Inpatient E&M: 41532 Subs Hosp L3
--- NOTE | 2021-09-29 15:11 | CON.PCM.CC_ITS ---
Assessment & Plan Assessment/Plan (1) CHF (congestive heart failure): QUALIFIERS: Heart failure type: unspecified Heart failure chronicity: acute Qualified Code(s): I50.9 - Heart failure, unspecified (2) Acute hypoxemic respiratory failure: (3) Pericardial effusion: (4) Pleural effusion: (5) Cor pulmonale, chronic: PLAN: RECOMMENDATIONS: 1. Supplemental oxygen to keep saturations greater than 90% at all times 2. Change nocturnal BiPAP to AVAPS with goal tidal volume of 400 3. Diuresis as tolerated 4. Outpatient complete PFT and PSG 5. Walking oximetry prior to discharge 6. Dietitian to advise on low-salt diet IMPRESSIONS: 1. Acute hypoxic respiratory failure secondary to cor pulmonale Unclear if patient truly has a right lower lobe pneumonia. Patient does have pleural effusions, lower extremity edema and a pericardial effusion suggestive of volume overload. Patient has improved following diuretics, but now is showing acute kidney injury. Patient does have elevated hemoglobin, stage III clubbing, moderately dilated RV and lower extremity edema suggestive of chronic hypoxia. Clinical suspicion for cor pulmonale leading to current findings. Patient would benefit from diuresis as tolerated, maintaining saturations greater than 90% at all times and a low-salt diet. Anticipate protracted recovery given findings of chronic hypoxia 2. Acute kidney injury Patient has a very tenuous fluid status. Patient did have significant volume overload on presentation. Patient will benefit from diuresis as tolerated. Agree with holding lisinopril and hydrochlorothiazide. Patient's RV will be preload dependent. No indication for renal replacement therapy at this time. Continue to follow on a routine basis. 3. Morbid obesity/advanced age/diabetes/hyperlipidemia Complicates care, management, recovery and prognosis. Okay to continue with baseline medications except for lisinopril and Metformin as these could cause issues in the setting of acute kidney injury with lactic acidosis and worsening TAYLER. HPI Consult Data Date of Consult: 09/29/21 HPI Narrative HPI Narrative: CLIFFORD GALLARDO is a 71 F, with past medical history listed below, who presented to [facility] on 09/26/2021 secondary to hypoxia. Patient reportedly is gotten progressively short of breath over the last 3 weeks. This was associated with some cough, but no production. No fevers have been reported. Patient reportedly had attempted using albuterol at home with little to no relief. Patient had gone to an urgent care and was found to have saturations in the 70s on room air and was sent to the ER for evaluation. Patient had been told that she had COPD in the past, but is never seen a [employer] consultant or had PFTs. In the ER, patient was afebrile, but tachypneic and requiring 4 L nasal cannula to maintain saturations. Blood pressure was elevated at 148/87. Laboratory work-up showed a white blood cell count of 7.5, hemoglobin of 17.2 and platelets of 283. Laboratory work-up showed a potassium of 5, sodium of 133 and a creatinine of 1.13. LFTs were within normal limits. BNP was elevated at 496 and a chest x-ray showed cardiomegaly with a small right pleural effusion and fluffy infiltrates. Chest CT shows a small right pleural effusion with right lower lobe consolidation, cardiomegaly and a small pericardial effusion. Since being admitted to the floor, patient has required 11 L nasal cannula oxygen to maintain saturations with activity. For this reason, a pulmonary consult was obtained. Patient states that she has been told that she has COPD in the past by the [facility] when she had a colonoscopy. Patient states she has never seen a [employer] consultant, required supplemental oxygen or used inhalers in the past. Patient has noted some decreased exercise tolerance and increased lower extremity edema. Patient is on lisinopril at baseline, but does not take Lasix. Patient reports a [id number] smoking history, but quit 2 years ago. Patient denies any exposure to asbestos or TB. Patient readily admits to a high salt diet on a routine basis. Patient's daughter was at the bedside and able to help with review of systems. Review of systems otherwise negative from a constitutional, HEENT, respiratory, cardiovascular, GI, genitourinary, musculoskeletal, skin, neurologic, psychiatric and hematologic system unless stated above. [facility] Medical History COPD (chronic obstructive pulmonary disease) Former smoker Hypertension Vision loss of right eye Home Medications glimepiride 1 mg PO BREAKFAST 09/27/21 [History Last Taken Unknown] hydrochlorothiazide 12.5 mg PO DAILY 09/27/21 [History Last Taken Unknown] lisinopril 40 mg PO DAILY 09/27/21 [History Last Taken Unknown] metformin 1,000 mg PO BIDCM 09/27/21 [History Last Taken Unknown] simvastatin 40 mg PO QHS 09/27/21 [History Last Taken Unknown] Allergy/AdvReac Type Severity Reaction Status Date / Time No Known Allergies Allergy Verified 09/26/21 16:19 Family History Other Heart disease Surgical History History of appendectomy Social History Smoking Status: Former smoker substance use type: does not use ROS ROS Narrative See HPI Physical Exam Const alert, oriented x3 and no apparent distress General Appearance: cooperative HEENT normocephalic and head/scalp atraumatic Eyes conjunctivae normal and no scleral icterus Neck full ROM, no lymphadenopathy and supple Resp normal respiratory effort Auscultation: rales bilateral base and 1/[address] way up and diminished lung sounds bilateral lower; Negative for rhonchi or wheezes Cardio regular rate, regular rhythm, S1 normal heart sound, no murmurs, no rub and no gallops; Negative for S2 normal heart sound Cardio Narrative: Pronounced second heart sound Palpation: abnormal PMI displaced PMI GI normal to inspection, nondistended, normoactive bowel sounds, soft to palpation, non-tender and non-distended Extremity normal to inspection and full ROM Extremity Narrative: Venous stasis changes of the lower extremities General Extremity: edema bilateral lower extremity Details: severe Skin no wounds Neuro oriented x3, moves all extremities, no focal motor deficits and no sensory deficits noted Sensorium / Orientation: awake and alert Psych affect normal Lab / Micro Data Result Diagrams: 09/29/21 05:20 09/29/21 05:20 Labs: Laboratory Results - last 24 hr 09/28/21 17:03: POC Glucose 152 H 09/28/21 19:42: POC Glucose 168 H 09/29/21 05:20: WBC 8.0, RBC 5.80 H, Hgb 15.6 H, Hct 54.1 H, MCV 93.3, MCH 26.9 L, MCHC 28.8 L, RDW Std Deviation 66.4 H, RDW Coeff of Chuy 19.9 H, Plt Count 211, MPV 9.0, Immature Gran % (Auto) 1.100 H, Neut % (Auto) 80.2 H, Lymph % (Auto) 10.7 L, [place] % (Auto) 7.9, Eos % (Auto) 0.0, Baso % (Auto) 0.1, Absolute Neuts (auto) 6.4, Absolute Lymphs (auto) 0.85, Nucleated RBC % 0.3, Polychromasia 1+, Anisocytosis 3+ 09/29/21 05:20: Sodium 135 L, Potassium 4.7, Chloride 97 L, Carbon Dioxide 33.0 H, Anion Gap 5, BUN 53 H, Creatinine 1.82 H, Estim Creat Clear Calc 22.42, Est GFR (MDRD) Af Amer 35 L, Est GFR (MDRD) Non-Af 29 L, BUN/Creatinine Ratio 29.1 H , Glucose 93, Calcium 8.4 L, Total Bilirubin 0.50, AST 10 L, ALT 18, Alkaline Phosphatase 73, Total Protein 6.5, Albumin 2.4 L, Globulin 4.1, Albumin/Globulin Ratio 0.6 L 09/29/21 06:04: POC Glucose 90 09/29/21 11:12: POC Glucose 181 H Micro: Microbiology 09/26/21 18:19 Blood Culture (Wb) - Anticubital Right Blood Culture - Preliminary No growth in 48 hours. 09/26/21 17:17 Blood Culture (Wb) - Anticubital Left Blood Culture - Preliminary No growth in 48 hours. Charges/Coding Visit Charges Inpatient E&M: 34359 Init Hosp L3
--- NOTE | 2021-09-29 15:11 | NURSING ---
This RN reviewed SN charting
[2021-09-29] MEDS: Furosemide 40 MG Tablet PO (16:35)
[2021-09-29 16:40] LABS: Bedside Glucose 174 mg/dL (70-110)
[2021-09-29] MEDS: Atorvastatin Calcium 20 MG Tablet PO (21:16)
[2021-09-29 21:25] LABS: Bedside Glucose 170 mg/dL (70-110)
[2021-09-30] VITALS (17 sets, daily range): BP systolic 119–147; BP diastolic 62–77; PULSE 80–100; RESP 12–22; TEMP 36.2–36.6; O2SAT 84–99
[2021-09-30 06:40] LABS: Bedside Glucose 93 mg/dL (70-110)
[2021-09-30] MEDS: Ipratropium/Albuterol Sulfate 3 ML AMPUL.NEB INHALATION ×5 (06:48→22:45)
[2021-09-30 07:10] LABS: Absolute Lymphocyte Count 0.88 X10^3/uL (0.83-4.51); Absolute Neutrophil Count 4.9 X10^3/uL (2.0-7.7); Basophil# 0.01 X10^3/uL; Basophil% 0.2 % (0-1); Eosinophil# 0.01 X10^3/uL; Eosinophils% 0.2 % (0-5); Hemoglobin 15.3 g/dL (12.0-15.0); Lymphocyte # 0.88 X10^3/ul (0.83-4.51); Lymphocyte % 13.5 % (19-41); Mean Corp Hgb Conc 28.3 g/dL (32-36); Mean Corpuscular Hgb 26.5 pg (27.0-32.0); Mean Corpuscular Volume 93.4 fL (81-99); Mean Platelet Vol. 9.1 fl (6.2-12.0); Monocyte# 0.71 X10^3/uL; Monocyte% 10.9 % (0-10); NRBC Flagged by Analyzer 0 % (0-5); Neutrophil # 4.86 X10^3/uL (2.7-7.7); Neutrophil % 74.6 % (47-70); Platelet Count 199 K/mm3 (150-450); RBC Distribution Width CV 19.4 % (11.6-14.6); Red Blood Count 5.78 M/mm3 (4.2-5.4); White Blood Count 6.5 K/mm3 (4.4-11.0)
[2021-09-30 07:48] LABS: ALB/GLOB Ratio 0.6 RATIO (0.9-2.4); AST(SGOT) 10 U/L (15-37); Alanine Aminotransfer ALT/SGPT 19 U/L (13-56); Albumin, Serum 2.5 g/dL (3.2-5.0); Alkaline Phosphatase 67 U/L (45-117); Anion Gap 4 (5-15); BUN 49 mg/dL (7-18); BUN/Creat Ratio 32.7 RATIO (10-20); Calcium,Total 8.8 mg/dL (8.5-10.1); Chloride 95 mmol/L (98-107); EST Glomerular Filtration Rate 36 mL/min (>60); Est Glom Filt Rate - Afr Amer 44 mL/min (>60); Estimated Creatinine Clearance 27.21 ml/min; Globulin 4.2 g/dL (2.2-4.2); Glucose 90 mg/dL (74-106); Potassium 4.5 mmol/L (3.5-5.1); Protein, Total 6.7 g/dL (6.4-8.2); Sodium Level 136 mmol/L (136-145)
--- NOTE | 2021-09-30 08:35 | PN.CC_ITS ---
Assessment & Plan Assessment/Plan (1) CHF (congestive heart failure): QUALIFIERS: Heart failure type: unspecified Heart failure chronicity: acute Qualified Code(s): I50.9 - Heart failure, unspecified (2) Acute hypoxemic respiratory failure: (3) Pericardial effusion: (4) Pleural effusion: (5) Cor pulmonale, chronic: PLAN: RECOMMENDATIONS: 1. Supplemental oxygen to keep saturations greater than 90% at all times 2. Change nocturnal BiPAP to AVAPS with goal tidal volume of 400 3. Diuresis as tolerated 4. Outpatient complete PFT and PSG 5. Walking oximetry prior to discharge. Monitor oxygen saturations with any physical or occupational therapy. 6. Dietitian to advise on low-salt diet IMPRESSIONS: 1. Acute hypoxic respiratory failure secondary to cor pulmonale Unclear if patient truly has a right lower lobe pneumonia. Patient does have pleural effusions, lower extremity edema and a pericardial effusion suggestive of volume overload. Patient has improved following diuretics, but now is showing acute kidney injury. Patient does have elevated hemoglobin, stage III clubbing, moderately dilated RV and lower extremity edema suggestive of chronic hypoxia. Clinical suspicion for cor pulmonale leading to current findings. Patient would benefit from diuresis as tolerated, maintaining saturations greater than 90% at all times and a low-salt diet. Anticipate protracted recovery given findings of chronic hypoxia. If patient able to tolerate 6 L or less, could consider disposition to TCU. Patient will need to have saturations monitored with therapy. 2. Acute kidney injury Patient has a very tenuous fluid status. Patient did have significant volume overload on presentation. Patient will benefit from diuresis as tolerated. Agree with holding lisinopril and hydrochlorothiazide. Patient's RV will be preload dependent. No indication for renal replacement therapy at this time. Continue to follow on a routine basis. 3. Morbid obesity/advanced age/diabetes/hyperlipidemia Complicates care, management, recovery and prognosis. Okay to continue with baseline medications except for lisinopril and Metformin as these could cause issues in the setting of acute kidney injury with lactic acidosis and worsening TAYLER. Subjective Subjective Patient did well overnight from a hemodynamic standpoint. Patient has been weaned to 8 L nasal cannula. Patient states she was unable to sleep in the bed secondary to it being uncomfortable. Patient did wear BiPAP for 2 hours overnight and felt that this was better. Objective Data Objective Data Vital Signs: Vital Signs Temp Pulse Resp BP Pulse Ox 36.2 C L 89 22 H 119/77 91 09/30/21 04:30 09/30/21 07:00 09/30/21 06:48 09/30/21 04:30 09/30/21 06:48 Oxygen Flow Rate (L/min) 8 Oxygen Delivery Method Nasal Cannula Weight: 111.5 kg Body Mass Index (BMI) 43.1 Intake & Output: Intake and Output for Last 24 Hours 09/28/21 09/29/21 09/30/21 23:59 23:59 23:59 Intake Total 1075 / 1195 180 / 180 Output Total Balance 1075 / 1195 180 / 180 Lab / Micro Data Result Diagrams: 09/30/21 05:55 09/30/21 05:55 Labs: Laboratory Results - last 24 hr 09/29/21 11:12: POC Glucose 181 H 09/29/21 16:34: POC Glucose 174 H 09/29/21 21:15: POC Glucose 170 H 09/30/21 05:55: WBC 6.5, RBC 5.78 H, Hgb 15.3 H, Hct 54.0 H, MCV 93.4, MCH 26.5 L, MCHC 28.3 L, RDW Std Deviation 65.0 H, RDW Coeff of Chuy 19.4 H, Plt Count 199, MPV 9.1, Immature Gran % (Auto) 0.600, Neut % (Auto) 74.6 H, Lymph % (Auto) 13.5 L, [place] % (Auto) 10.9 H, Eos % (Auto) 0.2, Baso % (Auto) 0.2, Absolute Neuts (auto) 4.9, Absolute Lymphs (auto) 0.88, Nucleated RBC % 0 09/30/21 05:55: Sodium 136, Potassium 4.5, Chloride 95 L, Carbon Dioxide 37.0 H, Anion Gap 4 L, BUN 49 H, Creatinine 1.50 H, Estim Creat Clear Calc 27.21, Est GFR (MDRD) Af Amer 44 L, Est GFR (MDRD) Non-Af 36 L, BUN/Creatinine Ratio 32.7 H , Glucose 90, Calcium 8.8, Total Bilirubin 0.50, AST 10 L, ALT 19, Alkaline Phosphatase 67, Total Protein 6.7, Albumin 2.5 L, Globulin 4.2, Albumin/Globulin Ratio 0.6 L 09/30/21 06:35: POC Glucose 93 Micro: Microbiology 09/26/21 18:19 Blood Culture (Wb) - Anticubital Right Blood Culture - Preliminary No growth in 48 hours. 09/26/21 17:17 Blood Culture (Wb) - Anticubital Left Blood Culture - Preliminary No growth in 48 hours. 09/27/21 15:05 Mucosa - Nasopharyngeal Respiratory Panel (PCR) - Final 09/26/21 18:03 Nasal Secretion SARS-CoV-2 Antigen (Rapid) - Final Physical Exam Const alert, oriented x3 and no apparent distress General Appearance: cooperative HEENT normocephalic and head/scalp atraumatic Eyes conjunctivae normal and no scleral icterus Neck full ROM, no lymphadenopathy and supple Resp normal respiratory effort Auscultation: rales bilateral base and 1/[address] up and diminished lung sounds bilateral lower; Negative for rhonchi or wheezes Cardio regular rate, regular rhythm, S1 normal heart sound, no murmurs, no rub and no gallops; Negative for S2 normal heart sound Cardio Narrative: Pronounced second heart sound Palpation: abnormal PMI displaced PMI GI normal to inspection, nondistended, normoactive bowel sounds, soft to palpation, non-tender and non-distended Extremity normal to inspection and full ROM Extremity Narrative: Venous stasis changes of the lower extremities with tense edema General Extremity: edema bilateral lower extremity Details: severe Skin no wounds Neuro oriented x3, moves all extremities, no focal motor deficits and no sensory deficits noted Sensorium / Orientation: awake and alert Psych affect normal Charges/Coding Visit Charges Inpatient E&M: 77832 Subs Hosp L2
[2021-09-30] MEDS: Furosemide 40 MG Tablet PO ×2 (09:08→17:19)
[2021-09-30] MEDS: predniSONE 20 MG Tablet 40 MG PO (09:08)
[2021-09-30] MEDS: guaiFENesin 1,200 MG Tablet 1200 MG PO ×2 (09:08→21:33)
[2021-09-30] MEDS: Enoxaparin 40 MG/0.4 ML Syringe SC (09:08)
--- NOTE | 2021-09-30 11:33 | PN.HOSP_ITS ---
Subjective Subjective Patient seen and examined. Patient sitting in chair eating breakfast no distress noted. Patient states that she is feeling so much better than when admitted, currently on 8 L nasal cannula. Objective Data Objective Data Vital Signs: Vital Signs Temp Pulse Resp BP Pulse Ox 97.8 F 87 18 132/75 H 92 09/30/21 09:05 09/30/21 10:30 09/30/21 10:30 09/30/21 09:05 09/30/21 09:05 Oxygen Flow Rate (L/min) 8 Oxygen Delivery Method High Flow Weight: 245 lb 13.047 oz Body Mass Index (BMI) 43.1 Intake & Output: Intake and Output for Last 24 Hours 09/28/21 09/29/21 09/30/21 23:59 23:59 23:59 Intake Total 1075 / 1195 180 / 180 Output Total Balance 1075 / 1195 180 / 180 Lab / Micro Data Result Diagrams: 09/30/21 05:55 09/30/21 05:55 Labs: Laboratory Results - last 24 hr 09/29/21 16:34: POC Glucose 174 H 09/29/21 21:15: POC Glucose 170 H 09/30/21 05:55: WBC 6.5, RBC 5.78 H, Hgb 15.3 H, Hct 54.0 H, MCV 93.4, MCH 26.5 L, MCHC 28.3 L, RDW Std Deviation 65.0 H, RDW Coeff of Chuy 19.4 H, Plt Count 199, MPV 9.1, Immature Gran % (Auto) 0.600, Neut % (Auto) 74.6 H, Lymph % (Auto) 13.5 L, [place] % (Auto) 10.9 H, Eos % (Auto) 0.2, Baso % (Auto) 0.2, Absolute Neuts (auto) 4.9, Absolute Lymphs (auto) 0.88, Nucleated RBC % 0 09/30/21 05:55: Sodium 136, Potassium 4.5, Chloride 95 L, Carbon Dioxide 37.0 H, Anion Gap 4 L, BUN 49 H, Creatinine 1.50 H, Estim Creat Clear Calc 27.21, Est GFR (MDRD) Af Amer 44 L, Est GFR (MDRD) Non-Af 36 L, BUN/Creatinine Ratio 32.7 H , Glucose 90, Calcium 8.8, Total Bilirubin 0.50, AST 10 L, ALT 19, Alkaline Phosphatase 67, Total Protein 6.7, Albumin 2.5 L, Globulin 4.2, Albumin/Globulin Ratio 0.6 L 09/30/21 06:35: POC Glucose 93 Micro: Microbiology 09/29/21 18:21 Sputum, Expectorated/Coughed Gram Stain - Final 09/29/21 18:21 Sputum, Expectorated/Coughed Respiratory Culture - Preliminary Culture exhibits no growth. 09/26/21 18:19 Blood Culture (Wb) - Anticubital Right Blood Culture - Preliminary No growth in 48 hours. 09/26/21 17:17 Blood Culture (Wb) - Anticubital Left Blood Culture - Preliminary No growth in 48 hours. 09/27/21 15:05 Mucosa - Nasopharyngeal Respiratory Panel (PCR) - Final 09/26/21 18:03 Nasal Secretion SARS-CoV-2 Antigen (Rapid) - Final Physical Exam Const alert, oriented x3 and no apparent distress General Appearance: cooperative Exam Limitations: no limitations Nutritional Appearance: morbidly obese HEENT normocephalic, head/scalp atraumatic and moist oral mucous membranes Eyes PERRL, EOMs intact bilaterally, conjunctivae normal and no scleral icterus Neck full ROM, supple, no JVD and no carotid bruits Resp normal respiratory effort and normal air movement Auscultation: diminished lung sounds bilateral lower Cardio regular rate, regular rhythm, S1 normal heart sound and S2 normal heart sound GI normal to inspection, nondistended, normoactive bowel sounds, soft to palpation, non-tender and non-distended Extremity normal to inspection and full ROM General Extremity: edema bilateral lower extremity Details: severe; Negative for clubbing or cyanosis Skin no rashes or lesions noted, no wounds, skin turgor normal, no jaundice, no petechiae and no mottling Neuro oriented x3, moves all extremities, no focal motor deficits and no sensory deficits noted Sensorium / Orientation: awake and alert Speech: speech normal Psych affect normal Assessment & Plan Assessment/Plan (1) TAYLER (acute kidney injury): (2) Morbid obesity: (3) PAH (pulmonary arterial hypertension) with portal hypertension: (4) CHF (congestive heart failure): QUALIFIERS: Heart failure type: unspecified Heart failure chronicity: acute Qualified Code(s): I50.9 - Heart failure, unspecified (5) Pneumonia: QUALIFIERS: Pneumonia type: due to unspecified organism Laterality: right Lung location: lower lobe of lung Qualified Code(s): J18.9 - Pneumonia, unspecified organism PLAN: 1. Acute hypoxic respiratory failure -Secondary to exacerbation of CHF, pleural effusion, pericardial effusion, COPD -Patient currently on 8L nasal cannula oxygen, continue to wean as able -Due to increased oxygen needs will obtain repeat chest x-ray -Dr. Mason consulted, patient states that she has a diagnosis of COPD however she is not currently on any treatment. -Encourage incentive spirometry and Pep therapy -AVAPS ordered QHS 2. Acute CHF exacerbation -Lasix transitioned from IV back to p.o. -1500 mL fluid restriction ordered -Continue to hold lisinopril and hydrochlorothiazide -Echocardiogram ordered 3. Pleural effusion and pericardial effusion -Continue diuresis with Lasix 4. Right lower lobe pneumonia -Continue azithromycin and Zosyn -Continue prednisone -Continue scheduled DuoNeb's as well as as needed albuterol treatments -Sputum culture ordered, blood cultures pending -P.o. Mucinex increased from 600 mg to 1200 mg twice daily 5. Acute kidney injury -Creatinine 1.5 today -Daily BMP 6. Hypokalemia -Resolved -Daily BMP DVT prophylaxis-subcu Lovenox This patient was seen by PARMJIT MuellerC under the supervision of Dr. Guzman.
[2021-09-30 11:50] LABS: Bedside Glucose 121 mg/dL (70-110)
--- NOTE | 2021-09-30 13:55 | CASEMGMT ---
Per physician patient is asking about going to a long-term for rehab. SW met with patient, introduced self and role at [facility]. SW confirmed patient would like to go to a long-term. SW provided patient with a list of SNF providers including quality and resource use data and consistent with the patient?s preferred geographic region, medical needs, and insurance network. SW did explain to patient that her insurance may not approve a [facility] facility stay as she is doing well with therapy other than her breathing. SW told patient that since she is not ready for discharge yet SW will continue to follow. Plan: SNF VS home [facility]
[2021-09-30] MEDS: Insulin Lispro 100 UNIT/ML INSULN.PEN SC (16:05)
[2021-09-30 16:11] LABS: Bedside Glucose 184 mg/dL (70-110)
[2021-09-30] MEDS: Atorvastatin Calcium 20 MG Tablet PO (21:33)
[2021-09-30 21:41] LABS: Bedside Glucose 140 mg/dL (70-110)
[2021-09-30] MEDS: LORazepam 2 MG/ML Syringe 1 MG IV (22:24)
[2021-10-01] VITALS (21 sets, daily range): BP systolic 120–148; BP diastolic 68–82; PULSE 78–106; RESP 12–22; TEMP 36.2–36.8; O2SAT 81–97
--- NOTE | 2021-10-01 01:24 | CPS ---
decreased fio2 to 55%-nurse aware
[2021-10-01 06:04] LABS: Anion Gap 3 (5-15); BUN 46 mg/dL (7-18); Chloride 95 mmol/L (98-107); EST Glomerular Filtration Rate 58 mL/min (>60); Est Glom Filt Rate - Afr Amer 70 mL/min (>60); Estimated Creatinine Clearance 40.81 ml/min; Glucose 103 mg/dL (74-106); Potassium 4.6 mmol/L (3.5-5.1); Sodium Level 136 mmol/L (136-145)
[2021-10-01 06:55] LABS: Bedside Glucose 104 mg/dL (70-110)
[2021-10-01] MEDS: Ipratropium/Albuterol Sulfate 3 ML AMPUL.NEB INHALATION ×5 (07:00→22:47)
[2021-10-01] MEDS: guaiFENesin 1,200 MG Tablet 1200 MG PO ×2 (10:32→21:24)
[2021-10-01] MEDS: Enoxaparin 40 MG/0.4 ML Syringe SC (10:32)
[2021-10-01] MEDS: predniSONE 20 MG Tablet 40 MG PO (10:32)
[2021-10-01] MEDS: Furosemide 20 MG Tablet 60 MG PO ×2 (10:32→17:18)
--- NOTE | 2021-10-01 11:06 | PN.HOSP_ITS ---
Documented by User: Gayathri Chavez ELEVATOR EXAMINER AND ADJUSTER-C 10/01/21 11:15 Subjective Subjective Patient seen and examined. Patient is sitting in chair, no distress noted. Patient currently on 4 L nasal cannula. Ambulatory pulse ox ordered patient denies needs at this time. Objective Data Objective Data Vital Signs: Vital Signs Temp Pulse Resp BP Pulse Ox 98.1 F 81 18 127/68 H 93 10/01/21 08:08 10/01/21 08:08 10/01/21 08:08 10/01/21 08:08 10/01/21 10:45 Oxygen Flow Rate (L/min) [ 8 AMBULATING with Oxygen #1] Oxygen Flow Rate (L/min) [At 4 REST with Oxygen] Oxygen Flow Rate (L/min) 4 Oxygen Delivery Method Nasal Cannula Weight: 233 lb 14.567 oz Body Mass Index (BMI) 43.1 Intake & Output: Intake and Output for Last 24 Hours 09/29/21 09/30/21 10/01/21 23:59 23:59 23:59 Intake Total 1075 / 1195 660 / 780 240 / 240 Output Total 200 / 900 2500 / 2500 Balance 1075 / 1195 460 / -120 -2260 / -2260 Lab / Micro Data Result Diagrams: 09/30/21 05:55 10/01/21 04:58 Labs: Laboratory Results - last 24 hr 09/30/21 11:35: POC Glucose 121 H 09/30/21 16:03: POC Glucose 184 H 09/30/21 21:33: POC Glucose 140 H 10/01/21 04:58: Sodium 136, Potassium 4.6, Chloride 95 L, Carbon Dioxide 38.0 H, Anion Gap 3 L, BUN 46 H, Creatinine 1.00, Estim Creat Clear Calc 40.81, Est GFR (MDRD) Af Amer 70, Est GFR (MDRD) Non-Af 58 L, BUN/Creatinine Ratio 46.0 H, Glucose 103, Calcium 9.0 10/01/21 06:46: POC Glucose 104 Micro: Microbiology 09/29/21 18:21 Sputum, Expectorated/Coughed Gram Stain - Final 09/29/21 18:21 Sputum, Expectorated/Coughed Respiratory Culture - Preliminary Culture exhibits no growth. 09/26/21 18:19 Blood Culture (Wb) - Anticubital Right Blood Culture - Preliminary No growth in 48 hours. 09/26/21 17:17 Blood Culture (Wb) - Anticubital Left Blood Culture - Preliminary No growth in 48 hours. 09/27/21 15:05 Mucosa - Nasopharyngeal Respiratory Panel (PCR) - Final 09/26/21 18:03 Nasal Secretion SARS-CoV-2 Antigen (Rapid) - Final Physical Exam Const alert, oriented x3 and no apparent distress General Appearance: cooperative Exam Limitations: no limitations Nutritional Appearance: morbidly obese HEENT normocephalic, head/scalp atraumatic and moist oral mucous membranes Eyes PERRL, EOMs intact bilaterally, conjunctivae normal and no scleral icterus Neck full ROM, supple, no JVD and no carotid bruits Resp normal respiratory effort and normal air movement Auscultation: diminished lung sounds bilateral lower Cardio regular rate, regular rhythm, S1 normal heart sound and S2 normal heart sound GI normal to inspection, nondistended, normoactive bowel sounds, soft to palpation, non-tender and non-distended Extremity normal to inspection and full ROM General Extremity: edema bilateral lower extremity Details: severe; Negative for clubbing or cyanosis Skin no rashes or lesions noted, no wounds, skin turgor normal, no jaundice, no petechiae and no mottling Neuro oriented x3, moves all extremities, no focal motor deficits and no sensory deficits noted Sensorium / Orientation: awake and alert Speech: speech normal Psych affect normal Assessment & Plan Assessment/Plan (1) TAYLER (acute kidney injury): (2) Morbid obesity: (3) PAH (pulmonary arterial hypertension) with portal hypertension: (4) CHF (congestive heart failure): QUALIFIERS: Heart failure chronicity: acute Heart failure type: unspecified Qualified Code(s): I50.9 - Heart failure, unspecified (5) Pneumonia: QUALIFIERS: Laterality: right Lung location: lower lobe of lung Pneumonia type: due to unspecified organism Qualified Code(s): J18.9 - Pneumonia, unspecified organism PLAN: 1. Acute hypoxic respiratory failure -Secondary to exacerbation of CHF, pleural effusion, pericardial effusion, COPD -Patient currently on 4L nasal cannula oxygen, continue to wean as able -Ambulatory oxygen testing completed, patient currently needs 8 L nasal cannula oxygen while ambulating. Will recheck tomorrow morning -Dr. Mason consulted, patient states that she has a diagnosis of COPD however she is not currently on any treatment. Patient will follow up with Dr. Mason outpatient -Encourage incentive spirometry and Pep therapy -AVAPS ordered QHS 2. Acute CHF exacerbation -Lasix increased to 60mg -1500 mL fluid restriction -Continue to hold lisinopril and hydrochlorothiazide -Echocardiogram demonstrates EF 75% with evidence of diastolic dysfunction 3. Pleural effusion and pericardial effusion -Continue diuresis with Lasix 4. Right lower lobe pneumonia -Continue azithromycin and Zosyn -Continue prednisone -Continue scheduled DuoNeb's as well as as needed albuterol treatments -Sputum culture ordered, blood cultures pending -Continue Mucinex 5. Acute kidney injury -Creatinine 1 today -Daily BMP 6. Hypokalemia -Resolved -Daily BMP DVT prophylaxis-subcu Lovenox This patient was seen by Gayathri Chavez NP-C under the supervision of Dr. Guzman. Documented by User: Dr. Radha Guzman DO 10/01/21 15:51 Subjective Subjective This patient was seen in conjunction with Gayathri Damon NP. The following is representation my independent history and physical examination. Please see below for addendum the above. Patient states she is feeling much better. She feels like she can move her legs better and that the swelling has improved although not resolved. Her breathing has improved as well and she is down to 4 L of nasal cannula at rest. We discussed that she is not going to qualify for rehab and will likely have to be discharged home. She is interested in following up with physical therapy for improved strengthening and mobility after discharge. Objective Data Lab / Micro Data Result Diagrams: 09/30/21 05:55 10/01/21 04:58 Physical Exam Const alert, oriented x3 and no apparent distress Constitutional Narrative: Morbidly obese white female sitting up in a chair at the bedside, appears comfortable, nontoxic, currently on 4 L nasal cannula, no conversational dyspnea General Appearance: cooperative Exam Limitations: no limitations Nutritional Appearance: morbidly obese HEENT normocephalic, head/scalp atraumatic and moist oral mucous membranes Head and Scalp: normocephalic Eyes no scleral icterus Neck full ROM Resp normal respiratory effort, normal air movement, no retractions, no use of accessory muscles and clear to auscultation bilaterally Resp Narrative: Diffusely diminished-distant secondary to body habitus Auscultation: diminished lung sounds bilateral lower; Negative for crackles, rales, rhonchi or wheezes Cardio regular rate, regular rhythm, S1 normal heart sound and S2 normal heart sound Cardio Narrative: Distant heart tones secondary to body habitus GI normal to inspection, nondistended, normoactive bowel sounds, soft to palpation, non-tender and non-distended Extremity normal to inspection and full ROM Extremity Narrative: No clubbing or cyanosis General Extremity: edema bilateral (Firm but softening) lower extremity Details: severe; Negative for clubbing or cyanosis Peripheral Pulses: Yes pulses 2+ throughout Skin no rashes or lesions noted, no wounds, skin turgor normal, no jaundice, no petechiae and no mottling Skin Narrative: Bilateral lower extremities are erythematous but no signs of infection or drainage-this is improving as well Neuro oriented x3, moves all extremities and no focal motor deficits Sensorium / Orientation: awake and alert Speech: speech normal Assessment & Plan Assessment/Plan (1) Morbid obesity: (2) PAH (pulmonary arterial hypertension) with portal hypertension: (3) Cor pulmonale, chronic: (4) Acute hypoxemic respiratory failure: PLAN: Assessment: Acute hypoxic respiratory failure PAH who group 3 TAYLER-resolved COPD Small right pleural effusion Morbid obesity Acute decompensated right and diastolic heart failure Suspected ANAY Hyperlipidemia Hypertension DM-2 Plan: -Echo shows normal EF but severely elevated pulmonary pressures consistent with cor pulmonale and pulmonary artery hypertension who group 3 as well as a dilated RV -Anticipate that she has chronic hypoxia given clubbing her dilated RV and elevated pulmonary pressures with chronic edema and erythrocytosis -Continue AutoPap as tolerated--> patient did tolerate for 3.5 hours last night -Reiterated the importance for use at home with regards to her right-sided heart issues -D-dimer was negative on admission -Recommended outpatient PFTs and sleep study--> patient will have follow-up with Dr. Mason -Serum creatinine is normalized and will therefore increase her oral Lasix to 60 mg twice daily and continue to monitor her -We will discontinue HCTZ on discharge -Ambulatory pulse ox performed as patient is below 6 L at rest and patient is requiring 8 L with ambulation at this time will reevaluate daily and once patient is on 6 L or less with ambulation we will be able to pursue discharge -Continue to hold lisinopril for now but consider restarting if blood pressures are elevated -Continue to hold home glimepiride and utilize SSI with Accu-Cheks -Appreciate pulmonary input Charges/Coding Visit Charges Inpatient E&M: 38999 Subs Hosp L2
--- NOTE | 2021-10-01 11:08 | PN.CC_ITS ---
Assessment & Plan Assessment/Plan (1) CHF (congestive heart failure): QUALIFIERS: Heart failure type: unspecified Heart failure chronicity: acute Qualified Code(s): I50.9 - Heart failure, unspecified (2) Acute hypoxemic respiratory failure: (3) Pericardial effusion: (4) Pleural effusion: (5) Cor pulmonale, chronic: PLAN: RECOMMENDATIONS: 1. Supplemental oxygen to keep saturations greater than 90% at all times 2. Change nocturnal BiPAP to AVAPS with goal tidal volume of 400 3. Diuresis as tolerated until discharged 4. Outpatient complete PFT and PSG 5. Obtain walking oximetry daily until discharge. Monitor oxygen saturations with any physical or occupational therapy. 6. If able to tolerate ambulation on 6 L or less, can discharge with follow- up in our office in 2 weeks 7. Steroids can be weaned over the next 12 to 14 days IMPRESSIONS: 1. Acute hypoxic respiratory failure secondary to cor pulmonale Unclear if patient truly has a right lower lobe pneumonia. Patient does have pleural effusions, lower extremity edema and a pericardial effusion suggestive of volume overload. Patient has improved following diuretics, but now is showing acute kidney injury. Patient does have elevated hemoglobin, stage III clubbing, moderately dilated RV and lower extremity edema suggestive of chronic hypoxia. Clinical suspicion for cor pulmonale leading to current findings. Patient would benefit from diuresis as tolerated, maintaining saturations greater than 90% at all times and a low-salt diet. Will obtain a walking oximetry. If patient able to tolerate ambulation on 6 L or less, potential discharge. Patient will follow-up in our office in 2 weeks. Patient understands that she will need a sleep study prior to being able to initiate BiPAP at home. Patient was advised that she should use this opportunity in the hospital to acclimate to noninvasive therapy. 2. Acute kidney injury Resolved. Patient has a very tenuous fluid status. Patient did have sig nificant volume overload on presentation. Patient will benefit from diuresis as tolerated. Continue to hold lisinopril and hydrochlorothiazide. Patient's RV will be preload dependent. No indication for renal replacement therapy at this time. Continue to follow on a routine basis. 3. Morbid obesity/advanced age/diabetes/hyperlipidemia Complicates care, management, recovery and prognosis. Okay to continue with baseline medications except for lisinopril. Renal function has improved. Okay to reinitiate Metformin from my perspective Subjective Subjective Patient continues to improve from a respiratory standpoint. Patient has had some discrepancy between an ear probe and her finger pulse ox. Patient has been weaned to 4 L nasal cannula. Patient did wear her BiPAP for over 5 hours overnight, but was given Ativan. Patient feels significantly improved today and feels her swelling is also improving. Patient has been able to walk a significant distance with therapy. Objective Data Objective Data Vital Signs: Vital Signs Temp Pulse Resp BP Pulse Ox 36.7 C 81 18 127/68 H 93 10/01/21 08:08 10/01/21 08:08 10/01/21 08:08 10/01/21 08:08 10/01/21 10:45 Oxygen Flow Rate (L/min) [ 8 AMBULATING with Oxygen #1] Oxygen Flow Rate (L/min) [At 4 REST with Oxygen] Oxygen Flow Rate (L/min) 4 Oxygen Delivery Method Nasal Cannula Weight: 106.1 kg Body Mass Index (BMI) 43.1 Intake & Output: Intake and Output for Last 24 Hours 09/29/21 09/30/21 10/01/21 23:59 23:59 23:59 Intake Total 1075 / 1195 660 / 780 240 / 240 Output Total 200 / 900 2500 / 2500 Balance 1075 / 1195 460 / -120 -2260 / -2260 Lab / Micro Data Result Diagrams: 09/30/21 05:55 10/01/21 04:58 Labs: Laboratory Results - last 24 hr 09/30/21 11:35: POC Glucose 121 H 09/30/21 16:03: POC Glucose 184 H 09/30/21 21:33: POC Glucose 140 H 10/01/21 04:58: Sodium 136, Potassium 4.6, Chloride 95 L, Carbon Dioxide 38.0 H, Anion Gap 3 L, BUN 46 H, Creatinine 1.00, Estim Creat Clear Calc 40.81, Est GFR (MDRD) Af Amer 70, Est GFR (MDRD) Non-Af 58 L, BUN/Creatinine Ratio 46.0 H, Glucose 103, Calcium 9.0 10/01/21 06:46: POC Glucose 104 Micro: Microbiology 09/29/21 18:21 Sputum, Expectorated/Coughed Gram Stain - Final 09/29/21 18:21 Sputum, Expectorated/Coughed Respiratory Culture - Preliminary Culture exhibits no growth. 09/26/21 18:19 Blood Culture (Wb) - Anticubital Right Blood Culture - Preliminary No growth in 48 hours. 09/26/21 17:17 Blood Culture (Wb) - Anticubital Left Blood Culture - Pre liminary No growth in 48 hours. 09/27/21 15:05 Mucosa - Nasopharyngeal Respiratory Panel (PCR) - Final 09/26/21 18:03 Nasal Secretion SARS-CoV-2 Antigen (Rapid) - Final Physical Exam Const alert, oriented x3 and no apparent distress General Appearance: cooperative HEENT normocephalic and head/scalp atraumatic Eyes conjunctivae normal and no scleral icterus Neck full ROM, no lymphadenopathy and supple Resp normal respiratory effort Auscultation: rales bilateral base and 1/3 way up and diminished lung sounds bilateral lower; Negative for rhonchi or wheezes Cardio regular rate, regular rhythm, S1 normal heart sound, no murmurs, no rub and no gallops; Negative for S2 normal heart sound Cardio Narrative: Pronounced second heart sound Palpation: abnormal PMI displaced PMI GI normal to inspection, nondistended, normoactive bowel sounds, soft to palpation, non-tender and non-distended Extremity normal to inspection and full ROM Extremity Narrative: Venous stasis changes of the lower extremities with tense edema General Extremity: edema bilateral lower extremity Details: severe Skin no wounds Neuro oriented x3, moves all extremities, no focal motor deficits and no sensory deficits noted Sensorium / Orientation: awake and alert Psych affect normal Charges/Coding Visit Charges Inpatient E&M: 88585 Subs Hosp L2
[2021-10-01 12:30] LABS: Bedside Glucose 112 mg/dL (70-110)
[2021-10-01] MEDS: Insulin Lispro 100 UNIT/ML INSULN.PEN SC ×2 (17:17→21:40)
[2021-10-01 18:06] LABS: Bedside Glucose 190 mg/dL (70-110)
[2021-10-01] MEDS: LORazepam 1 MG Tablet PO (21:24)
[2021-10-01] MEDS: Atorvastatin Calcium 20 MG Tablet PO (21:24)
[2021-10-01 21:45] LABS: Bedside Glucose 199 mg/dL (70-110)
[2021-10-02] VITALS (9 sets, daily range): BP systolic 116–155; BP diastolic 62–79; PULSE 62–95; RESP 16–22; TEMP 36.9; O2SAT 82–97
[2021-10-02 05:51] LABS: Anion Gap 2 (5-15); BUN 48 mg/dL (7-18); BUN/Creat Ratio 57.2 RATIO (10-20); Calcium,Total 9.2 mg/dL (8.5-10.1); Chloride 95 mmol/L (98-107); Creatinine, Serum 0.84 mg/dL (0.55-1.02); EST Glomerular Filtration Rate 71 mL/min (>60); Est Glom Filt Rate - Afr Amer 86 mL/min (>60); Estimated Creatinine Clearance 48.58 ml/min; Glucose 93 mg/dL (74-106); Potassium 4.7 mmol/L (3.5-5.1); Sodium Level 133 mmol/L (136-145)
[2021-10-02 06:41] LABS: Bedside Glucose 97 mg/dL (70-110)
--- NOTE | 2021-10-02 06:42 | CPS ---
Pt went to the bathroom and declined request to place back on bipap
[2021-10-02] MEDS: Ipratropium/Albuterol Sulfate 3 ML AMPUL.NEB INHALATION ×2 (07:36→10:43)
[2021-10-02] MEDS: predniSONE 10 MG Tablet 30 MG PO (08:43)
[2021-10-02] MEDS: guaiFENesin 1,200 MG Tablet 1200 MG PO (08:44)
[2021-10-02] MEDS: Furosemide 20 MG Tablet 60 MG PO (08:44)
[2021-10-02] MEDS: Enoxaparin 40 MG/0.4 ML Syringe SC (08:45)
--- NOTE | 2021-10-02 10:00 | PCM.PN.INT ---
Assessment & Plan Assessment/Plan (1) CHF (congestive heart failure): QUALIFIERS: Heart failure type: unspecified Heart failure chronicity: acute Qualified Code(s): I50.9 - Heart failure, unspecified (2) Acute hypoxemic respiratory failure: (3) Pericardial effusion: (4) Pleural effusion: (5) Cor pulmonale, chronic: PLAN: RECOMMENDATIONS: 1. Supplemental oxygen to keep saturations greater than 90% at all times 2. Change nocturnal BiPAP to AVAPS with goal tidal volume of 400 3. Diuresis as tolerated until discharged 4. Outpatient complete PFT and PSG 5. BiPAP will have to be arranged as an outpatient following sleep study 6. Okay to discharge from a pulmonary perspective, can discharge with follow-up in our office in 2 weeks 7. Steroids can be weaned over the next 12 to 14 days IMPRESSIONS: 1. Acute hypoxic respiratory failure secondary to cor pulmonale Unclear if patient truly has a right lower lobe pneumonia. Patient does have pleural effusions, lower extremity edema and a pericardial effusion suggestive of volume overload. Patient has improved following diuretics, but now is showing acute kidney injury. Patient does have elevated hemoglobin, stage III clubbing, moderately dilated RV and lower extremity edema suggestive of chronic hypoxia. Clinical suspicion for cor pulmonale leading to current findings. Patient would benefit from diuresis as tolerated, maintaining saturations greater than 90% at all times and a low-salt diet. Patient would qualify for discharge from a pulmonary perspective. Patient will follow-up in our office in 2 weeks. Patient understands that she will need a sleep study prior to being able to initiate BiPAP at home. Patient was advised that she should use this opportunity in the hospital to acclimate to noninvasive therapy. 2. Acute kidney injury Resolved. Patient has a very tenuous fluid status. Patient did have significant volume overload on presentation. Patient will benefit from diuresis as tolerated. Continue to hold lisinopril and hydrochlorothiazide. Patient's RV will be preload dependent. No indication for renal replacement therapy at this time. Continue to follow on a routine basis. 3. Morbid obesity/advanced age/diabetes/hyperlipidemia Complicates care, management, recovery and prognosis. Okay to continue with baseline medications except for lisinopril. Renal function has improved. Okay to reinitiate Metformin from my perspective Subjective Subjective Patient did well overnight. Patient continues to report subjective improvement in overall condition. Patient's neuropathy of the lower extremities is improving with diuresis. Patient was able to have a walking oximetry this morning with nursing and only required 5 L nasal cannula. Patient states her family has thrown away all the salt in the house. Objective Data Objective Data Vital Signs: Vital Signs Temp Pulse Resp BP Pulse Ox 36.9 C 95 16 135/74 H 97 10/02/21 08:41 10/02/21 08:41 10/02/21 08:41 10/02/21 08:41 10/02/21 08:52 Oxygen Flow Rate (L/min) [ 5 AMBULATING with Oxygen #1] Oxygen Flow Rate (L/min) [At 5 REST with Oxygen] Oxygen Flow Rate (L/min) 5 Oxygen Delivery Method Nasal Cannula Weight: 106.1 kg Body Mass Index (BMI) 43.1 Intake & Output: Intake and Output for Last 24 Hours 09/30/21 10/01/21 10/02/21 23:59 23:59 23:59 Intake Total 660 / 780 910 / 910 180 / 180 Output Total 200 / 900 5750 / 5750 250 / 250 Balance 460 / -120 -4840 / -4840 -70 / -70 Lab / Micro Data Result Diagrams: 09/30/21 05:55 10/02/21 04:52 Labs: Laboratory Results - last 24 hr 10/01/21 12:15: POC Glucose 112 H 10/01/21 17:15: POC Glucose 190 H 10/01/21 21:39: POC Glucose 199 H 10/02/21 04:52: Sodium 133 L, Potassium 4.7, Chloride 95 L, Carbon Dioxide 36.0 H, Anion Gap 2 L, BUN 48 H, Creatinine 0.84, Estim Creat Clear Calc 48.58, Est GFR (MDRD) Af Amer 86, Est GFR (MDRD) Non-Af 71, BUN/Creatinine Ratio 57.2 H, Glucose 93, Calcium 9.2 10/02/21 06:31: POC Glucose 97 Micro: Microbiology 09/26/21 17:17 Blood Culture (Wb) - Anticubital Left Blood Culture - Final No growth in 5 days. 09/26/21 18:19 Blood Culture (Wb) - Anticubital Right Blood Culture - Final No growth in 5 days. 09/29/21 18:21 Sputum, Expectorated/Coughed Gram Stain - Final 09/29/21 18:21 Sputum, Expectorated/Coughed Respiratory Culture - Preliminary Culture exhibits no growth. 09/27/21 15:05 Mucosa - Nasopharyngeal Respiratory Panel (PCR) - Final 09/26/21 18:03 Nasal Secretion SARS-CoV-2 Antigen (Rapid) - Final Physical Exam Const alert, oriented x3 and no apparent distress General Appearance: cooperative HEENT normocephalic and head/scalp atraumatic Eyes conjunctivae normal and no scleral icterus Neck full ROM, no lymphadenopathy and supple Resp normal respiratory effort Auscultation: rales bilateral base and 1/3 way up and diminished lung sounds bilateral lower; Negative for rhonchi or wheezes Cardio regular rate, regular rhythm, S1 normal heart sound, no murmurs, no rub and no gallops; Negative for S2 normal heart sound Cardio Narrative: Pronounced second heart sound Palpation: abnormal PMI displaced PMI GI normal to inspection, nondistended, normoactive bowel sounds, soft to palpation, non-tender and non-distended Extremity normal to inspection and full ROM Extremity Narrative: Venous stasis changes of the lower extremities with 3+ edema General Extremity: edema bilateral lower extremity Details: severe Skin no wounds Neuro oriented x3, moves all extremities, no focal motor deficits and no sensory deficits noted Sensorium / Orientation: awake and alert Psych affect normal Charges/Coding Visit Charges Inpatient E&M: 95961 Subs Hosp L2
--- NOTE | 2021-10-02 10:46 | PCM.DC ---
Discharge Instructions Diet Discharge Diet: No restrictions Activity Discharge Activity: Return to Normal Activity Weight Bearing Status: Weight bearing as tolerated Dressing / Incision Call your doctor if you observe: Fever of 101 or Higher, Numbness or Tingling, Shortness of breath, Dizziness, Chest pain, Increased palpitations (irregular heartbeat) and Calf discomfort Follow Up Care Please Follow Up With: Primary care provider When: Within the next two weeks. Test Results: Test results from this visit will be discussed in further detail at your follow-up appointment, if applicable. Discharge Plan Admission Admit Date/Time: 09/26/21 21:19 Attending Provider: Radha Guzman Primary Care Provider: Mark Henry Consulting Providers: Frank Mason Discharge Orders/Prescriptions Prescriptions: No Action simvastatin 40 mg tablet 40 mg PO QHS RF: 0 glimepiride 1 mg tablet 1 mg PO BREAKFAST RF: 0 metformin 1,000 mg tablet 1,000 mg PO BIDCM RF: 0 hydrochlorothiazide 12.5 mg capsule 12.5 mg PO DAILY RF: 0 lisinopril 40 mg tablet 40 mg PO DAILY RF: 0 Referrals / Follow Up: Mark Henry MD [Primary Care Provider] - Within 2 Weeks Disposition Disposition (needs filled in before D/C Order can be placed): Home, Self Care
--- NOTE | 2021-10-02 11:12 | CASEMGMT ---
Patient has a Healthcare Power of Home Service Advisor and a Healthcare Living Will. Patient is aware they are not on file at [facility]. Ivanna FORTE
--- NOTE | 2021-10-02 11:23 | CASEMGMT ---
Pt qualifies for 5L [place]c continuous home [place] [facility] [place] Pt states would like OP therapy at discharge in [place] and pt/daughter provided with script for OP PT. Pt/daughter voice no further questions/concerns/needs at this time. Pt to use [employer] tank that is already here at [facility] for discharge and Hilary MARAVILLA aware, voices understanding. Cammie MARAVILLA
[2021-10-02 11:25] LABS: Bedside Glucose 121 mg/dL (70-110)
--- NOTE | 2021-10-02 12:03 | DS.PCM_ITS ---
Documented by User: Kenneth CANALES 10/02/21 12:16 Providers Date of Admission: 09/26/21 Primary Care Physician: Dr. 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 Routine Consulting Provider: Frank Mason Reason for Consult: increased O2 need EMERGENT Consult: No MD Notified: Yes Date Notified: 09/29/21 Time Notified: 08:41 Method of Notification: Text Reason For Visit: CHF EXACERBATION Diagnosis Discharge Diagnosis (1) CHF (congestive heart failure): Status: Acute Code(s): I50.9 - Heart failure, unspecified Qualifiers: Heart failure chronicity: acute Heart failure type: unspecified Qualified Code(s): I50.9 - Heart failure, unspecified (2) Acute hypoxemic respiratory failure: Status: Acute Code(s): J96.01 - Acute respiratory failure with hypoxia (3) Pericardial effusion: Status: Acute Code(s): I31.3 - Pericardial effusion (noninflammatory) (4) Pleural effusion: Status: Acute Code(s): J90 - Pleural effusion, not elsewhere classified (5) Cor pulmonale, chronic: Status: Chronic Code(s): I27.81 - Cor pulmonale (chronic) Medications at Discharge Home Medications glimepiride 1 mg PO BREAKFAST 09/27/21 metformin 1,000 mg PO BIDCM 09/27/21 atorvastatin 40 mg PO QHS #60 tab 10/02/21 furosemide 60 mg PO BIDLX #180 tab 10/02/21 lisinopril 20 mg PO DAILY #30 tab 10/02/21 prednisone 10 mg PO DAILY #18 tab 10/02/21 Hospital Course Procedures 2-D Echocardiogram and Transthoracic echo Summary of Care Provided Minutes Spent on Discharge: 35 Hospital Course: Disposition: Patient to discharge home. 1) acute hypoxic respiratory failure secondary to acute mixed CHF exacerbation and cor pulmonale Echocardiogram completed on 09/27 demonstrated an EF of 75% with evidence of systolic and diastolic dysfunction, rest of report as above. Patient initiated on 5 L oxygen at home. Patient initiated on Lasix twice daily and lisinopril. Patient to follow-up with Dr. Mason for polysomnography and pulmonary function testing. 2) pleural effusion and pericardial effusion Patient was diuresed while admitted. To follow-up with Dr. Mason as above. 3) right lower lobe pneumonia Patient treated with azithromycin and Zosyn during admission. Prednisone initiated on discharge. 4) TAYLER Resolved, creatinine currently 0.8. 5) hypokalemia Resolved, currently 4.7. Patient seen by Kenneth Mayberry PA-C, under the supervision of Dr. Guzman. Physical Exam Narrative Patient is a 71-year-old female comfortably resting in a chair, alert and orient x3. Patient reports shortness of breath and lower extremity swelling has improved from admission. Denies development of any new symptoms overnight. Const alert, oriented x3 and no apparent distress HEENT normocephalic, head/scalp atraumatic and hearing grossly normal bilaterally Eyes PERRL, EOMs intact bilaterally and conjunctivae normal Neck no lymphadenopathy, supple and no JVD Resp normal respiratory effort, no retractions, no use of accessory muscles and clear to auscultation bilaterally Cardio regular rate, regular rhythm, no murmurs and no JVD GI normal to inspection, nondistended, normoactive bowel sounds, soft to palpation and non-tender Extremity normal to inspection, full ROM and no clubbing, cyanosis or edema Skin no rashes or lesions noted, no wounds and skin turgor normal Neuro CN's II-XII intact bilaterally Psych affect normal Weight / BMI Weight Weight: 233 lb 14.567 oz Body Mass Index (BMI) 43.1 ABG / Lab / Microbiology Data Result Diagrams: 09/30/21 05:55 10/02/21 04:52 Laboratory: Laboratory Results - last 24 hr 10/01/21 12:15: POC Glucose 112 H 10/01/21 17:15: POC Glucose 190 H 10/01/21 21:39: POC Glucose 199 H 10/02/21 04:52: Sodium 133 L, Potassium 4.7, Chloride 95 L, Carbon Dioxide 36.0 H, Anion Gap 2 L, BUN 48 H, Creatinine 0.84, Estim Creat Clear Calc 48.58, Est GFR (MDRD) Af Amer 86, Est GFR (MDRD) Non-Af 71, BUN/Creatinine Ratio 57.2 H, Glucose 93, Calcium 9.2 10/02/21 06:31: POC Glucose 97 10/02/21 11:22: POC Glucose 121 H Microbiology: Microbiology 09/29/21 18:21 Sputum, Expectorated/Coughed Gram Stain - Final 09/29/21 18:21 Sputum, Expectorated/Coughed Respiratory Culture - Final 09/26/21 17:17 Blood Culture (Wb) - Anticubital Left Blood Culture - Final No growth in 5 days. 09/26/21 18:19 Blood Culture (Wb) - Anticubital Right Blood Culture - Final No growth in 5 days. 09/27/21 15:05 Mucosa - Nasopharyngeal Respiratory Panel (PCR) - Final 09/26/21 18:03 Nasal Secretion SARS-CoV-2 Antigen (Rapid) - Final D/C Instructions Discharge Diet: No restrictions Weight Bearing Status: Weight bearing as tolerated Call your doctor if you observe: Fever of 101 or Higher, Numbness or Tingling, Shortness of breath, Dizziness, Chest pain, Increased palpitations (irregular heartbeat) and Calf discomfort Please Follow Up With: Primary care provider When: Within the next two weeks. Meaningful Use Info Meaningful Use Diagnoses (Choose all that apply): CHF CHF KEVON/ARB ordered at discharge?: Yes Documented LVEF (%): 75 Discharge Plan Admission Admit Date/Time: 09/26/21 21:19 Primary Reason for Your Visit: Shortness of breath Attending Provider: Radha Guzman Primary Care Provider: Mark Henry Consulting Providers: Frank Mason Instructions Additional Instructions / Restrictions: 1. No medication changes below with decrease in lisinopril dose from 40 mg to 20 mg given the initiation of Lasix and the discontinuation of hydrochlo rothiazide 2. Referral for sleep study was performed 3. Please utilize oxygen as ordered until instructed to change 4. Please follow-up with Dr. Mason as instructed 5. Please see cholesterol (simvastatin) medication as you were taking at home 6. Obtain Basic Metabolic Profile within 1 week due to medication changes. Discharge Orders/Prescriptions Prescriptions: New furosemide 20 mg Tablet 60 mg PO BIDLX Qty: 180 RF: 0 lisinopril 20 mg tablet 20 mg PO DAILY Qty: 30 RF: 0 prednisone 10 mg tablet 10 mg PO DAILY Qty: 18 RF: 0 atorvastatin 20 mg Tablet 40 mg PO QHS Qty: 60 RF: 0 Continued glimepiride 1 mg tablet 1 mg PO BREAKFAST RF: 0 metformin 1,000 mg tablet 1,000 mg PO BIDCM RF: 0 Discontinued simvastatin 40 mg tablet 40 mg PO QHS RF: 0 hydrochlorothiazide 12.5 mg capsule 12.5 mg PO DAILY RF: 0 lisinopril 40 mg tablet 40 mg PO DAILY RF: 0 Other Ambulatory Orders: Basic Metabolic Profile (BMP) (Routine) Timeframe: 1 Week Facility: [facility] - Location: Laboratory Ordered By: Kenneth CANALES Polysomnography (Routine) Facility: [facility] - Location: [facility] Ordered By: Dr. Radha Guzman Referrals / Follow Up: Frank Mason MD [STAFF PHYSICIAN] - Within 2 Weeks Mark Henry MD [Primary Care Provider] - 10/17/21 3:40 pm Disposition Disposition (needs filled in before D/C Order can be placed): Home, Self Care Documented by User: Dr. Radha Guzman DO 10/02/21 14:31 Providers Date of Admission: 09/26/21 Reason For Visit: CHF EXACERBATION Medications at Discharge Home Medications glimepiride 1 mg PO BREAKFAST 09/27/21 metformin 1,000 mg PO BIDCM 09/27/21 atorvastatin 40 mg PO QHS #60 tab 10/02/21 furosemide 60 mg PO BIDLX #180 tab 10/02/21 lisinopril 20 mg PO DAILY #30 tab 10/02/21 prednisone 10 mg PO DAILY #18 tab 10/02/21 Hospital Course Operations None Procedures 2-D Echocardiogram Summary of Care Provided Minutes Spent on Discharge: 45 Hospital Course: This patient was seen in conjunction with PARKER Gamble. The following is a representation my independent history and physical examination. Please see below for addendum the above. Mrs. Dobbins is a 71-year-old white female who presented to the emergency department at [facility] on 09/26/2021 with 3 weeks of progressive shortness of breath. She had initially presented to an urgent care where she was found to be hypoxic with a SPO2 of 70% and referred to the emergency department. In the emergency department she was placed on suppleme ntal oxygen and a CT was performed that showed a small right pleural effusion, a small pericardial effusion and consolidation versus atelectasis in the right lower lobe. On admission she has noted that her weight has been up over the past 8 to 10 months and she has had progressively increasing edema in the bilateral lower extremities. In the emergency department she was treated with Lasix, ceftriaxone, azithromycin, and duo nebs and placed on supplemental oxygen which improved her oxygen saturations to 88 to 91% with 3 L. She was admitted to the telemetry floor and placed on continue diuresis, antibiotics for possible right lower lobe pneumonia, supplemental oxygen and echocardiogram was ordered. Echocardiogram was performed on 09/26/2021 and showed hyperdynamic LV with normal function and an EF of 75%. Mild concentric LVH, moderately dilated RV with moderate global RV dysfunction, biatrial enlargement, severe mitral annular calcification with trivial mitral valve insufficiency and right ventricular systolic pressures estimated at 75 mmHg consistent with severe pulmonary hypertension. Despite diuresis she required 11 L of heated high flow nasal cannula without the ability to wean. On exam she had evidence of chronic hypoxia with clubbing and erythrocytosis was noted in her lab work. She was placed on AutoPap and tolerated this well at night. A D-dimer was performed on admission and found to be negative. With IV diuresis she developed some mild TAYLER for which IV diuresis was discontinued and oral Lasix was added. She tolerated her oral diuretic well and had resolution of her TAYLER prior to discharge. Pulmonary was consulted during her course of stay to assure outpa tient follow-up and reiterate and support her need for continued outpatient care. I suspect her RV dysfunction is related to a combination of COPD, morbid obesity, and untreated obstructive sleep apnea and the predominant component of her heart failure is RV dysfunction. By 10/02/2021 we were able to decrease her oxygen requirements to the point where she was requiring 4 L at rest and 5 L with ambulation. She was set up to continue to have home oxygen at discharge. She was discharged on Lasix 60 mg twice daily and instructed to have a basic metabolic profile in 1 week. Her hydrochlorothiazide was discontinued and her lisinopril was cut from 40 mg daily to 20 mg daily as to not drop her blood pressures any further with the initiation of the high level diuretics. A nocturnal polysomnography was ordered as an outpatient to get the ball rolling with diagnosing her suspected sleep apnea. She was also instructed to follow-up with pulmonary medicine for continued follow-up and PFTs. She instructed also to follow-up with her primary care physician within the next 1 to 2 weeks. Discharge diagnoses: Acute hypoxic respiratory failure with suspected chronic component Acute decompensated diastolic and right heart failure-resolving TAYLER-resolved Cor pulmonale PAH who group 3 Suspected COPD Small right pleural effusion Morbid obesity Suspected ANAY Suspected obesity hypoventilation syndrome Hyperlipidemia Hypertension DM-2 Physical Exam Const alert, oriented x3 and no apparent distress Constitutional Narrative: Morbidly obese white female sitting up in a chair at the bedside, appears comfortable, nontoxic, currently on 4 L nasal cannula, no conversational dyspnea, daughter at the bedside General Appearance: cooperative, comfortable, well kempt and well developed Orientation / Consciousness: awake Exam Limitations: no limitations Nutritional Appearance: morbidly obese HEENT normocephalic, head/scalp atraumatic, hearing grossly normal bilaterally and moist oral mucous membranes HEENT Narrative: No thrush, Mallampati 3, Eyes PERRL, EOMs intact bilaterally, conjunctivae normal and no scleral icterus Eyes Narrative: No scleral icterus Neck full ROM, no lymphadenopathy, supple and no JVD Neck Narrative: Short thick neck, trachea midline Resp normal respiratory effort, normal air movement, no retractions, no use of accessory muscles and clear to auscultation bilaterally Resp Narrative: Diffusely diminished-distant secondary to body habitus Auscultation: diminished lung sounds bilateral lower; Negative for crackles, rales, rhonchi or wheezes Cardio regular rate, regular rhythm, S1 normal heart sound and S2 normal heart sound Cardio Narrative: Distant heart tones secondary to body habitus GI normal to inspection, nondistended, normoactive bowel sounds, soft to palpation, non-tender and non-distended Extremity normal to inspection and full ROM Extremity Narrative: No clubbing or cyanosis General Extremity: edema bilateral (Firm but softening) lower extremity Details: severe; Negative for clubbing or cyanosis Skin no rashes or lesions noted, no wounds, skin turgor normal, no jaundice, no petechiae and no mottling Skin Narrative: Bilateral extremities slightly erythematous but much improved Neuro oriented x3, CN's II-XII intact bilaterally, moves all extremities and no focal motor deficits Neuro Narrative: Mild generalized weakness Sensorium / Orientation: awake and alert Speech: speech normal Psych affect normal Psych Narrative: Very pleasant and cooperative ABG / Lab / Microbiology Data Result Diagrams: 09/30/21 05:55 10/02/21 04:52 Discharge Plan Admission Admit Date/Time: 09/26/21 21:19 Primary Reason for Your Visit: Shortness of breath Attending Provider: Radha Guzman Primary Care Provider: Mark Henry Consulting Providers: Frank Mason Instructions Additional Instructions / Restrictions: 1. No medication changes below with decrease in lisinopril dose from 40 mg to 20 mg given the initiation of Lasix and the discontinuation of hydrochl orothiazide 2. Referral for sleep study was performed 3. Please utilize oxygen as ordered until instructed to change 4. Please follow-up with Dr. Mason as instructed 5. Please see cholesterol (simvastatin) medication as you were taking at home 6. Obtain Basic Metabolic Profile within 1 week due to medication changes. Discharge Orders/Prescriptions Prescriptions: New furosemide 20 mg Tablet 60 mg PO BIDLX Qty: 180 RF: 0 lisinopril 20 mg tablet 20 mg PO DAILY Qty: 30 RF: 0 prednisone 10 mg tablet 10 mg PO DAILY Qty: 18 RF: 0 atorvastatin 20 mg Tablet 40 mg PO QHS Qty: 60 RF: 0 Continued glimepiride 1 mg tablet 1 mg PO BREAKFAST RF: 0 metformin 1,000 mg tablet 1,000 mg PO BIDCM RF: 0 Discontinued simvastatin 40 mg tablet 40 mg PO QHS RF: 0 hydrochlorothiazide 12.5 mg capsule 12.5 mg PO DAILY RF: 0 lisinopril 40 mg tablet 40 mg PO DAILY RF: 0 Other Ambulatory Orders: Basic Metabolic Profile (BMP) (Routine) Timeframe: 1 Week Facility: [facility] - Location: Laboratory Ordered By: Kenneth CANALES Polysomnography (Routine) Facility: [facility] - Location: [facility] Ordered By: Dr. Radha Guzman Referrals / Follow Up: Frank Mason MD [STAFF PHYSICIAN] - Within 2 Weeks Mark Henry MD [Primary Care Provider] - 10/17/21 3:40 pm Disposition Disposition (needs filled in before D/C Order can be placed): Home, Self Care Charges/Coding Visit Charges Inpatient E&M: 18153 Disch Hosp
--- NOTE | 2021-10-02 12:10 | PHA.DC.MC ---
Pharmacy Service has performed discharge medication reconciliation and counseling for this patient. The patient was counseled on the following discharge medications and changes in medications for homegoing were reviewed. 1. LISINOPRIL --> DOSE CHANGE 2. PREDNISONE 3. LIPITOR 4. LASIX The Reason for Use, instructions for use, and potential side effects were reviewed for all new medications. The patient's questions regarding all of their medications were answered. The patient was able to verbally demonstrate an understanding of their discharge medications. Home Medications glimepiride 1 mg PO BREAKFAST 09/27/21 metformin 1,000 mg PO BIDCM 09/27/21 atorvastatin 40 mg PO QHS #60 tab 10/02/21 furosemide 60 mg PO BIDLX #180 tab 10/02/21 lisinopril 20 mg PO DAILY #30 tab 10/02/21 prednisone 10 mg PO DAILY #18 tab 10/02/21 The patient's discharge medication list was reviewed for discrepancies and discrepancies were resolved.
[2021-10-02] MEDS: COVID-19 VACC, MRNA(PFIZER)/PF 30 MCG/0.3 ML SYRINGE IM (14:53)
--- NOTE | 2021-10-02 15:43 | NURSING ---
no reaction to pfizer booster patient dc to home with daughter
--- NOTE | 2021-10-03 15:55 | CASEMGMT ---
RENITA WOLFE Discharge F/U Phone Call LACE: 12 Strata: 3 Discharge date: 10/02/21 Call date: 10/03/21 Call time: [id number] Admission dx: CHF exacerbation Pt states 'feeling so much better, my pain and swelling in my legs is so much better.' Pt states no questions regarding discharge instructions/medications. Pt states has f/u appt with Dr. Henry and plans to keep. Pt states no suggestions for [facility] and states 'I have never had such excellent treatment.' Pt voices no further questions/concerns/needs. [place]en RENITA WOLFE
== END 2021-10-02 16:05 | disposition home or self-care (01) | DRG 291 ==
LOC: ED 20:53 → PCU 22:15
PROVIDERS: Internal Medicine; Emergency Provider Emergency Medicine; PCP Family Medicine; Visit Provider Internal Medicine
DX: I11.0 Hypertensive heart disease with heart failure (principal); J18.9 Pneumonia, unspecified organism; J96.01 Acute respiratory failure with hypoxia; I50.41 Acute combined systolic (congestive) and diastolic (congestive) heart failure; J44.0 Chronic obstructive pulmonary disease with (acute) lower respiratory infection; N17.9 Acute kidney failure, unspecified; Z68.41 Body mass index [BMI] 40.0-44.9, adult; I31.3 Pericardial effusion (noninflammatory); J44.1 Chronic obstructive pulmonary disease with (acute) exacerbation; K76.6 Portal hypertension; Z23 Encounter for immunization; E87.5 Hyperkalemia; E66.01 Morbid (severe) obesity due to excess calories; I27.81 Cor pulmonale (chronic); E78.5 Hyperlipidemia, unspecified; E11.9 Type 2 diabetes mellitus without complications; Z87.891 Personal history of nicotine dependence; Z79.899 Other long term (current) drug therapy; Z79.84 Long term (current) use of oral hypoglycemic drugs; G47.33 Obstructive sleep apnea (adult) (pediatric); I27.21 Secondary pulmonary arterial hypertension
CPT/HCPCS: 0004A; 36415; 71045; 71250; 80048; 80053; 80061; 82962; 83605; 83880; 84132; 84443; 84484; 85025; 85379; 85610; 85730; 87040; 87070; 87205; 87426; 87633; 87641; 91300; 93005; 93306; 94002; 94003; 94640; 94667; 94668; 97161; 97166; 97530; 97535; 97802; 97803; 99251; 99283; G0008; J7050; Q9957; 90686; A4216; G0463; J1940

== ENCOUNTER → 2021-11-13 13:00 | Outpatient (CLI) | payer MEDICARE, SELFPAY ==
[2021-11-13 14:05] VITALS: PULSE 101; PULSE 103; PULSE 108; PULSE 109; PULSE 82; PULSE 88; PULSE 95; O2SAT 86; O2SAT 90; O2SAT 91; O2SAT 92; O2SAT 94; O2SAT 95
--- NOTE | 2021-11-13 14:12 | CPS ---
SHE WAS ON 5 LPM O2 UPON ARRIVAL SPO2 WAS 92% REMOVED FOR 7 MINS DROPPED TO 87% PUT O2 BACK ON AT 4LPM SPO2 WAS 94% STARTED THE WALK AND AT 415 INTO TEST SPO2 DROPPED TO 86% TURNED O2 UP TO 6 LPM AND SHE RESTED FOR 30 SECS AND THE WALK WAS RESUMED.
--- NOTE | 2021-11-13 14:54 | WT_ITS ---
PSN 6 Minute Walk Test 6 Minute Walk Test 6 Minute Walk Test: 6 Minute Walk Test PSN:6-Minute Walk Test Start: 11/13/21 14:04 Freq: Status: Active Protocol: [id number] Document 11/13/21 14:05 FR (Rec: 11/13/21 14:16 FR [id number]) 6 Minute Walk Test Date Performed 11/13/21 Time Performed 13:30 Height 5 ft 1 in Weight: 92.079 kg Weight in Pounds 203.[address]: HOWARD/ART Assistive device used: None Pre-test Oxygen Flow Rate (L/min) (L/min) 4 Oxygen Delivery Method Nasal Cannula Pulse Ox (%) 94 Pulse Rate (60-100 beats/min) 82 Dyspnea Dorie Scale (0-10) 2 Exertion Dorie Scale (6-20) 8 1st minute Oxygen Flow Rate (L/min) (L/min) 4 Oxygen Delivery Method Nasal Cannula Pulse Ox (%) 91 Pulse Rate (60-100 beats/min) 95 2nd minute Oxygen Flow Rate (L/min) (L/min) 4 Oxygen Delivery Method Nasal Cannula Pulse Ox (%) 91 Pulse Rate (60-100 beats/min) 101 H 3rd minute Oxygen Flow Rate (L/min) (L/min) 4 Oxygen Delivery Method Nasal Cannula Pulse Ox (%) 90 Pulse Rate (60-100 beats/min) 103 H 4th minute Oxygen Flow Rate (L/min) (L/min) 4 Pulse Ox (%) 86 Pulse Rate (60-100 beats/min) 109 H Number of Rests Taken 1 Reported Symptoms Increased Work of Breathing 5th minute Oxygen Flow Rate (L/min) (L/min) 6 Oxygen Delivery Method Nasal Cannula Pulse Rate (60-100 beats/min) 95 Dyspnea Dorie Scale (0-10) 102 6th minute Oxygen Flow Rate (L/min) (L/min) 6 Oxygen Delivery Method Nasal Cannula Pulse Ox (%) 92 Pulse Rate (60-100 beats/min) 108 H Dyspnea Dorie Scale (0-10) 4 Exertion Dorie Scale (6-20) 10 Post-test Oxygen Flow Rate (L/min) (L/min) 6 Oxygen Delivery Method Nasal Cannula Pulse Ox (%) 95 Pulse Rate (60-100 beats/min) 88 Full Laps Walked 10 Partial Lap, Number of Tiles Walked 33 Total Distance Walked (ft) 623 11/13/21 14:12 Cardiopulmonary Services by Gauri Rivero SHE WAS ON 5 LPM O2 UPON ARRIVAL SPO2 WAS 92% REMOVED FOR 7 MINS DROPPED TO 87% PUT O2 BACK ON AT 4LPM SPO2 WAS 94% STARTED THE WALK AND AT 415 INTO TEST SPO2 DROPPED TO 86% TURNED O2 UP TO 6 LPM AND SHE RESTED FOR 30 SECS AND THE WALK WAS RESUMED. Initialized on 11/13/21 14:12 - END OF NOTE Interpretation Interpretation: Patient noted to be 87% on room air and was placed on 4 L nasal cannula with improvement to 94%. The patient did require 6 L nasal cannula to maintain saturations at the end of 6 minutes. In total, the patient traveled 623 feet over the course of 6 minutes with no assistive devices and 1 break. No signific ant tachycardia was noted. These findings are consistent with a respiratory limit Recommendations Recommendations: The patient requires 4 L nasal cannula at rest and should be using 6 L nasal cannula with exertion.
== END ==
PROVIDERS: PCP Family Medicine; Visit Provider Nurse Practitioner Acute Care
DX: J44.9 Chronic obstructive pulmonary disease, unspecified (principal)
CPT/HCPCS: 94618

== ENCOUNTER 2022-01-26 09:31 | Outpatient (CLI) | payer MEDICARE, SELFPAY ==
--- NOTE | 2022-01-26 13:36 | PFT ---
INTRODUCTION: The patient is a 72-year-old female that presents for pulmonary function studies secondary to a diagnosis of COPD. Respiratory therapy reported good patient effort. Bronchodilators were used during testing. INTERPRETATION: Forced expiration spirometry demonstrates the presence of a moderately severe large airways obstructive ventilatory defect. There was no significant response to aerosolized bronchodilators. Spirograms are of good quality but do not plateau indicating slow emptying of the lungs. Body plethysmography was performed and revealed an elevated RV to 177% of predicted, indicative of underlying air trapping. Diffusing capacity by single breath CO was reduced at 38% of predicted. IMPRESSION: Irreversible moderately severe large airways obstructive ventilatory defect with associated air trapping and symmetric reduction in diffusing capacity.
== END 2022-01-26 23:59 | disposition home or self-care (01) ==
LOC: PSN 09:32
PROVIDERS: PCP Family Medicine; Referring Provider Nurse Practitioner Acute Care; Visit Provider Nurse Practitioner Acute Care
DX: J44.9 Chronic obstructive pulmonary disease, unspecified (principal)
CPT/HCPCS: 94060; 94726; 94729

== ENCOUNTER 2024-02-11 11:41 | Emergency (ER) | payer MEDICARE, SELFPAY ==
[2024-02-11 11:41] VITALS: BP 178/81; PULSE 77; RESP 14; TEMP 36.1; O2SAT 82; O2SAT 96
--- NOTE | 2024-02-11 11:53 | EKG12_ITS ---
Test Reason : PALP Blood Pressure : / mmHG Vent. Rate : 080 BPM Atrial Rate : 080 BPM P-R Int : 222 ms QRS Dur : 068 ms QT Int : 356 ms P-R-T Axes : 044 013 025 degrees QTc Int : 410 ms Sinus rhythm with 1st degree A-V block Otherwise normal ECG Confirmed by Benito De Leon ([id number]), order editor IKE HERNANDEZ ([id number]) on 02/15/2024 8:49:05 AM Referred By: NABILA Confirmed By:Benito De Leon
[2024-02-11] MEDS: Aspirin 81 MG TAB.CHEW 324 MG PO (12:12)
[2024-02-11 12:13] VITALS: BMI 45.2
[2024-02-11 12:18] LABS: Absolute Lymphocyte Count 1.68 X10^3/uL (0.83-4.51); Absolute Neutrophil Count 7.2 X10^3/uL (2.0-7.7); Basophil# 0.04 X10^3/uL; Basophil% 0.4 % (0-1); Eosinophil# 0.11 X10^3/uL; Eosinophils% 1.1 % (0-5); Hematocrit 44.1 % (37-47); Hemoglobin 13.8 g/dL (12.0-15.0); Lymphocyte # 1.68 X10^3/ul (0.83-4.51); Lymphocyte % 17.6 % (19-41); Mean Corp Hgb Conc 31.3 g/dL (32-36); Mean Corpuscular Volume 95.9 fL (81-99); Mean Platelet Vol. 9.8 fl (6.2-12.0); Monocyte# 0.53 X10^3/uL; Monocyte% 5.5 % (0-10); NRBC Flagged by Analyzer 0 % (0-5); Neutrophil # 7.18 X10^3/uL (2.7-7.7); Neutrophil % 75.1 % (47-70); Platelet Count 294 K/mm3 (150-450); RBC Distribution Width CV 16.5 % (11.6-14.6); RBC Distribution Width SD 57.1 fl (35.1-43.9); White Blood Count 9.6 K/mm3 (4.4-11.0)
[2024-02-11 12:29] LABS: D-Dimer Quantitative (DVT/PE) 0.36 FEU/ug/m (0.27-0.49)
--- NOTE | 2024-02-11 12:35 | RAD_ITS ---
STUDY: X-RAY CHEST REASON FOR EXAM: Female, 74 years old. Chest pain TECHNIQUE: Single AP portable view of the chest. COMPARISON: Comparison is made with prior study dated September 28, 2021. FINDINGS: EKG electrodes are seen. There is evidence of vascular congestion and mild degree of CHF. There is no demonstrated pleural abnormality. There is mild cardiac enlargement. Normal mediastinum and jerald. Normal visualized pulmonary arteries. There is atherosclerotic calcification of the aortic arch with tortuosity. There are diffuse degenerative changes of the visualized thoracic spine. Normal visualized ribs, clavicles, and shoulders. There is no demonstrated abnormality of the visualized soft tissue structures of the upper abdomen. RAD/Chest 1 View (Portable) IMPRESSION: Cardiomegaly. Mild degree of CHF. Electronically Signed: Paco Souza MD at 13:21 EDT ,
[2024-02-11 12:38] LABS: BNP,B-Type NATRIURETIC PEPTIDE 67.5 pg/mL (0-100)
[2024-02-11 12:41] LABS: Anion Gap 6 (5-15); BUN 56 mg/dL (7-18); BUN/Creat Ratio 31.1 RATIO (10-20); Calcium,Total 9.9 mg/dL (8.5-10.1); Chloride 99 mmol/L (98-107); EST Glomerular Filtration Rate 29 mL/min (>60); Est Glom Filt Rate - Afr Amer 35 mL/min (>60); Estimated Creatinine Clearance 32.44 ml/min; Glucose 166 mg/dL (74-106); Potassium 4.6 mmol/L (3.5-5.1); Sodium Level 136 mmol/L (136-145); Troponin-I HS 12 pg/mL (3.0-54.0)
--- NOTE | 2024-02-11 12:50 | EX.ED.DYSGE1 ---
HPI History of Present Illness Chief Complaint: Palpitations Narrative Narrative: 74-year-old female with history of CHF, diabetes, stage III kidney disease, morbid obesity, COPD presenting with shortness of breath and lightheadedness. This started yesterday. Patient reported several times to stand up and felt lightheaded and off balance. She did not fall. She states that it completely improved today and she went to see her primary care physician and he told her she needed to come to the emergency room because she was in A-fib with RVR. She states that her heart rate was tachycardic while she was at the office. She denies any chest pain but did have some mild shortness of breath with the dizziness. She is on Lasix 40 mg daily for history of CHF. She is not on any rate control drugs. No history of A-fib. She is not anticoagulated. No fevers or chills. [facility] Medical History CHF (congestive heart failure) COPD (chronic obstructive pulmonary disease) Cor pulmonale, chronic Diabetes type 2, controlled Former smoker Hyperparathyroidism Hypertension Morbid obesity PAH (pulmonary arterial hypertension) with portal hypertension Pericardial effusion Pneumonia Stage 3 chronic kidney disease Vision loss of right eye Home Medications aspirin 81 mg tablet,delayed release 81 mg PO DAILY 11/03/21 [History Last Taken Unknown] atorvastatin 40 mg tablet 40 mg PO DAILY 02/10/22 [History Last Taken Unknown] furosemide 20 mg tablet 40 mg PO BIDLX 02/10/22 [History Last Taken Unknown] folic acid 1 mg tablet PO 09/25/22 [History Last Taken Unknown] glimepiride 1 mg tablet mg PO 09/25/22 [History Last Taken Unknown] atropine 1 % eye drops 1 drp ophthalmic (eye) 12/16/23 [History Last Taken Unknown] brimonidine 0.15 % eye drops drp ophthalmic (eye) 12/16/23 [History Last Taken Unknown] dorzolamide 2 % eye drops 1 drp ophthalmic (eye) TID 12/16/23 [History Last Taken Unknown] empagliflozin 10 mg tablet (Jardiance) 25 mg PO QAM 12/16/23 [History Last Taken Unknown] lisinopril 40 mg tablet 20 mg PO DAILY 12/16/23 [History Last Taken Unknown] prednisolone acetate 1 % eye drops,suspension 1 drp ophthalmic (eye) BID 12/16/23 [History Last Taken Unknown] tiotropium 2.5 mcg-olodaterol 2.5 mcg/actuation mist for inhalation (Stiolto Respimat) 2 inh inhalation DAILY #3 ea 12/16/23 [Rx Last Taken Unknown] apixaban 2.5 mg tablet (Eliquis) 2.5 mg PO BID #60 tabs 02/11/24 [Rx Last Taken Unknown] Allergy/AdvReac Type Severity Reaction Status Date / Time latex Allergy Intermediate Rash Verified 02/11/24 11:42 Family History Other Arthritis Breast cancer CVA (cerebral vascular accident) Diabetes Heart disease Hypertension Thyroid disorder Surgical History H/O section H/O tubal ligation History of appendectomy Social History household members: family Smoking Status: Former smoker alcohol intake: current alcohol intake frequency: holidays/special occasions only substance use type: does not use what type of physical activity do you participate in: walking ROS ROS ED Constitutional Constitutional ED: Denies chills, fever(s) or sweats Eyes Eyes: Denies blurry vision or change in vision ENT ENT ED: Denies ear pain or sore throat Cardiovascular Cardiovascular: Reports palpitations and other Details: Lightheadedness ; Denies chest pain or racing heartbeat Respiratory/Chest Respiratory/Chest: Denies cough, dyspnea or sputum Gastrointestinal Gastrointestinal: Denies abdominal pain, constipation, diarrhea, nausea or vomiting Genitourinary Genitourinary ED: Denies dysuria, hematuria or urinary frequency Musculoskeletal Musculoskeletal: Denies arthralgias, myalgias or neck pain Integumentary Denies abscess, Abrasions or rash Neurologic Neurologic: Denies headache(s), paresthesias or weakness Psychiatric Psychiatric: Denies anxiety, depression, suicidal ideation or suicidal thoughts Endocrine Endocrinology: Denies polydipsia or polyuria EXAM Physical Exam Const Vital Signs: 02/11/24 11:41 02/11/24 11:41 02/11/24 12:13 Temperature 97 F L Temperature Source Temporal Pulse Rate 77 Respiratory Rate 14 Blood Pressure 178/81 H Blood Pressure Mean 113 Pulse Ox 82 96 Oxygen Delivery Method Room Air Nasal Cannula Nasal Cannula Oxygen Flow Rate (L/min) 6 5 02/11/24 13:41 Temperature Temperature Source Pulse Rate 79 Respiratory Rate 22 H Blood Pressure 146/81 H Blood Pressure Mean 102 Pulse Ox 93 Oxygen Delivery Method Nasal Cannula Oxygen Flow Rate (L/min) 5 Positive well nourished General Appearance ED: NAD; Negative for pallor HEENT Reports moist mucous membranes Eyes PERRL and EOMs intact bilaterally Chest Wall inspection of chest normal Resp normal respiratory effort and clear to auscultation bilaterally Auscultation: Negative for rales, rhonchi or wheezes Cardio regular rate and regular rhythm Extremity normal to inspection Neuro oriented x3 and CN's II-XII intact bilaterally Sensorium / Orientation: alert Motor Exam: strength 5/5 throughout Psych mental status grossly normal Skin no rashes or lesions noted General Skin Exam: Negative for jaundice or pallor MDM MDM MDM Narrative Medical decision making narrative: Patient presenting with lightheadedness yesterday today she feels fine she was at the doctor's office today and noted that she had A-fib RVR on EKG. Patient's heart rate was apparently 130s to 140s there and she currently is in the 70s. She has no symptoms. No chest pain. No shortness of breath. She has not had a fever or chills. She states she was sent over by her primary care at a concern that she might have stroke and that she needed to be on a blood thinner. EKG was obtained here today and shows sinus rhythm with a first-degree AV block and a beats per minute. High-sensitivity troponin is 12. BNP 67.5. CBC shows normal blood cell count at 9.6. Hemoglobin 13.8. Platelets normal at 294. Creatinine is elevated today at 1.80 however no recent creatinine available. GFR 29. Most recent lab work to compare this to was September 2021. Then her creatinine was 0.84. Her GFR was 71.Chest x-ray my interpretation is no acute process. Will discuss case with cardiology. Chest x-ray my interpretation shows mild CHF which patient has a history of. She is not hypoxic and is on her baseline oxygen. Patient maintain sats fairly well but dropped to 90% but she felt well. Discussed with Dr. Montoya who felt the patient could go home and follow-up as an outpatient with cardiology. He recommended a low-dose of Eliquis at 2.5 mg p.o. twice daily given her renal dysfunction. Since she is currently in a sinus rhythm with a first-degree AV block he did not want any rate control added. I gave her return precautions. I gave her all instructions for anticoagulation and risk factors with prior return given that she is on blood thinners. She is understanding of this. Impression: 1. New onset A-fib 2. History of CHF Lab Data Attestation: I reviewed the patient's lab results. Labs: Laboratory Results - last 24 hr 02/11/24 12:00 WBC 9.6 RBC 4.60 Hgb 13.8 Hct 44.1 MCV 95.9 MCH 30.0 MCHC 31.3 L RDW Std Deviation 57.1 H RDW Coeff of Chuy 16.5 H Plt Count 294 MPV 9.8 Immature Gran % (Auto) 0.300 Neut % (Auto) 75.1 H Lymph % (Auto) 17.6 L [place] % (Auto) 5.5 Eos % (Auto) 1.1 Baso % (Auto) 0.4 Absolute Neuts (auto) 7.2 Absolute Lymphs (auto) 1.68 Nucleated RBC % 0 D-Dimer Quant (PE/DVT) 0.36 Sodium 136 Potassium 4.6 Chloride 99 Carbon Dioxide 31.0 Anion Gap 6 BUN 56 H Creatinine 1.80 H Estim Creat Clear Calc 32.44 Est GFR (MDRD) Af Amer 35 L Est GFR (MDRD) Non-Af 29 L BUN/Creatinine Ratio 31.1 H Glucose 166 H Calcium 9.9 Troponin I High Sens 12 B-Natriuretic Peptide 67.5 Radiography Diagnostic Testing: Clinical Impression(s) from Imaging Studies Chest X-Ray 02/11/24 12:35 IMPRESSION: Cardiomegaly. Mild degree of CHF. Electronically Signed: Paco Souza MD at 13:21 EDT , Discharge Plan Triage Chief Complaint: Palpitations ED Provider: Ja Domingo Dx/Rx/DC Orders Instructions: ED Atrial Flutter Prescriptions: New Eliquis 2.5 mg tablet 2.5 mg PO BID Qty: 60 0RF No Action aspirin 81 mg tablet,delayed release (DR/EC) 81 mg PO DAILY furosemide 20 mg tablet 40 mg PO BIDLX atorvastatin 40 mg tablet 40 mg PO DAILY lisinopril 40 mg tablet 20 mg PO DAILY glimepiride 1 mg tablet PO folic acid 1 mg tablet PO Jardiance 10 mg tablet 25 mg PO QAM dorzolamide 2 % drops 1 drp ophthalmic (eye) TID Patient Comments: INSTILL 1 DROP INTO RIGHT EYE THREE TIMES DAILY brimonidine 0.15 % drops ophthalmic (eye) Patient Comments: INSTILL 1 DROP INTO RIGHT EYE THREE TIMES DAILY atropine 1 % drops 1 drp ophthalmic (eye) Patient Comments: INSTILL 1 DROP INTO RIGHT EYE ONCE DAILY prednisolone acetate 1 % drops,suspension 1 drp ophthalmic (eye) BID Patient Comments: INSTILL 1 DROP INTO RIGHT EYE TWICE DAILY Stiolto Respimat 2.5-2.5 mcg/actuation mist 2 inh inhalation DAILY Qty: 3 3RF Primary Care Provider: Mark Henry Referrals: Tan Rincon MD [Med Staff - Active Staff] - 3-5 Days Mark Henry MD [Primary Care Provider] - Disposition Disposition: Home, Self Care
[2024-02-11 13:25] VITALS: O2SAT 92
[2024-02-11 13:41] VITALS: BP 146/81; PULSE 79; RESP 22; O2SAT 93
[2024-02-11] MEDS: APIXABAN 2.5 MG TABLET (WCH) PO (13:56)
[2024-02-11 14:09] VITALS: BP 150/78; PULSE 89; RESP 20; TEMP 36.1; O2SAT 93
== END 2024-02-11 14:10 | disposition home or self-care (01) ==
PROVIDERS: Emergency Provider Student in an Organized Health Care Education/Training Program; PCP Family Medicine; Visit Provider Student in an Organized Health Care Education/Training Program
DX: I48.91 Unspecified atrial fibrillation (principal); J44.9 Chronic obstructive pulmonary disease, unspecified; I50.9 Heart failure, unspecified; E66.01 Morbid (severe) obesity due to excess calories; N18.30 Chronic kidney disease, stage 3 unspecified; Z87.891 Personal history of nicotine dependence
CPT/HCPCS: 71045; 80048; 83880; 84484; 85025; 85379; 93005; 99284; A4216

== ENCOUNTER → 2025-01-24 | Outpatient (CLI) | payer MEDICARE, SELFPAY ==
--- NOTE | 2025-01-24 14:30 | CT_ITS ---
PROCEDURE: LOW DOSE CT LUNG SCREENING REASON FOR EXAM: Long-time smoker. TECHNIQUE: Low Dose CT Lung Screening without contrast COMPARISON: Comparison is made with prior study dated September 26, 2021. FINDINGS: PULMONARY NODULES: (Only nodules >6mm are reported) Nodules described below are on series 1 unless otherwise specified. Pulmonary Nodules: There is a new 9.2 mm nodule in the posterior medial aspect of the left lower lobe as seen on axial image number 178 and coronal image number 175 Hardware:None Lymph Nodes:No mediastinal hilar or axillary lymphadenopathy. Heart and Vasculature:Normal heart size. No pericardial effusion.Thoracic aorta and pulmonary arteries have normal contours; noncontrast technique limits evaluation. Coronary Artery Calcifications: Present Lungs and Airways: Mild scarring in the anterior aspect of the left lower lobe. Pleura:No pleural effusion. No pneumothorax. Upper Abdomen:Visualized portions of the upper abdominal viscera are unremarkable. Bones:Degenerative changes of the thoracic spine. CT/Low Dose CT Lung Screening IMPRESSION: 1. BASED ON THE ACR LUNG RADS FOR THE MOST SUSPICIOUS NODULE (IF ANY) DESCRIBE D IN THIS REPORT, THE OVERALL LUNG RADS SCORE IS 4B. 4B-VERY SUSPICIOUS. RECOMMEND DIAGNOSTIC CHEST CT; PET/CT MAY BE CONSIDERED IF >=8MM SOLID NODULE OR SOLID COMPONENT; TISSUE SAMPLING; AND/OR REFERRAL FOR CLINICAL EVALUATION. IF AIRWAY NODULE THEN REFER FOR CLINICAL EVALUATION. 2. SMOKING CESSATION COUNSELING IS RECOMMENDED IF THE PATIENT IS STILL SMOKING . 3. OTHER SIGNIFICANT FINDINGSNone. One or more dose reduction techniques were used (e.g., Automated exposure contr ol, adjustment of the mA and/or kV according to patient size, use of iterative reconstruction technique). The following information is provided for reference:Lung-RADS 2021 Assessment C ategories. Additional information involving Lung-RADS is available at www.acr.org. 0-INCOMPLETE 1-NEGATIVE:No nodules or definitely benign nodules. Complete, central, popcorn , or centric ring calcifications OR fat containing 2-BENIGN APPEARANCE (based on imaging features or indolent behavior). Juxtaple ural nodule: < 10mm AND solid; smooth margins; oval, entiform, or triangular shape Solid nodule: <6mm at baseline or new< 4mm Part solid Nodule: < 6mm total mean diameter at baseline Nonsolid nodule:(GGN) < 30mm OR >=30mm stable or slowly growing Airway nodule, subsegmental at baseline, new, or stable Category 3 nodule stabl e or decreased in size at 6-month follow-up CT or Category 3 or 4A nodules that resolve on follow-up OR category 4B findings prov en to be benign following diagnotic work up. 3 - Probably Benign (Based on imaging features or behavior) Solid Nodule: >= 6 to <8mm at baseline OR new 4 to <6mm Part-solid nodule: >= 6mm toal mean diam. with solid component <6mm at baseline OR new < 6mm total mean diam. Non-solid nodule: GGN >= 30mm at baseline or new Atypical pulmonary cyst: Growing cystic component (mean diam.) of thick-walled cyst Category 4A nodule stable or decreased in size at 3-month follow-up CT (excl.ai rway). 4A - Suspicious Solid nodule: >=8 to < 15mm at baseline OR growing < 8mm OR new 6 to < 8mm Part solid nodule: >= 6mm total mean diam. w/ solid component >=6mm to < 8mm at baseline OR new or growing < 4mm solid component Airway nodule, segmental or more proximal at baseline or new Atypical pulmonary cyst: Thick-walled OR multilocular at baseline OR becomes mu ltilocular 4B - Very Suspicious Airway nodule, segmental or more proximal, and stable or growing Solid nodule: >= 15mm at baseline OR new or growing >= 8mm Part solid nodule: Solid component >= 8mm OR new or growing >= 4mm solid compon ent Atypical pulmonary cyst: Thick-walled with growing wall thickness/nodularity OR Growing multilocular (mean diam.) OR Multilocular with increased loculation or new/increased opacity Slow-growing solid or part solid nodule w/ growth over multiple screening exams 4X - Very Suspicious Category 3 or 4 nodules with additional features that increase the suspicion fo r lung cancer. S - Clinically Significant or potentially significant findings (non-lung cancer ) Reading Location: [id number]
== END | disposition home or self-care (01) ==
PROVIDERS: PCP Family Medicine; Referring Provider Nurse Practitioner Acute Care; Visit Provider Nurse Practitioner Acute Care
DX: F17.210 Nicotine dependence, cigarettes, uncomplicated (principal)
CPT/HCPCS: 71271

== ENCOUNTER → 2025-05-07 | Outpatient (CLI) | payer MEDICARE, SELFPAY ==
--- NOTE | 2025-05-07 14:31 | CT_ITS ---
PROCEDURE: CHEST WITHOUT CONTRAST 05/07/2025 REASON FOR EXAM: NEW LUNG NODULE AND SMOKER TECHNIQUE: Chest CT without contrast. Coronal and Sagittal reconstruction series were provided. One or more dose reduction techniques were used (e.g., Automated exposure control, adjustment of the mA and/or kV according to patient size, use of iterative reconstruction technique RADIATION DOSE SUMMARY: CTDlvol: 19.29 mGy DLP: 655.68 mGycm COMPARISON: Low-dose chest CT, 01/24/2025. FINDINGS: Hardware: None. Lymph nodes: There are multiple reactive mediastinal lymph nodes, index node, a precarinal lymph node, measuring 18 x 10 mm (was 19 x 12 mm) Heart and Vasculature: The heart is enlarged. There is lipomatous hypertrophy of the intra-atrial septum. There is no pericardial effusion. There is calcific vascular disease of the thoracic aorta and coronary arteries. The mitral valve is heavily calcified. There is no thoracic aortic aneurysm. The main pulmonary artery is normal in diameter. Lungs and Airways: There is a stable 10 x 7 mm nodule in the posterior basal segment of the lower lobe of the left lung. There is pleural-based consolidation in the posterior basilar segment of the lower lobe of both lungs, consistent with atelectasis. There is diffuse prominence of the interstitium and mild pulmonary venous hypertension, consistent with congestive heart failure. Pleura: There is a small right pleural effusion, not present previously. Upper Abdomen: There is circumferential thickening of the wall of the distal esophagus consistent with gastroesophageal reflux. There is calcific vascular disease of the visualized abdominal aorta. Chest wall: The soft tissues of the chest wall are unremarkable. There is no axillary lymphadenopathy. There is mild multilevel degenerative disc disease of the thoracic and upper lumbar spine. There is an apparent healed fracture of the right scapula. CT/Chest without Contrast IMPRESSION: 1. Stable soft tissue density nodule in the lower lobe of the left lung. Ther e are no new pulmonary nodules. 2. Cardiomegaly, pulmonary venous hypertension and pulmonary interstitial dylon a consistent with congestive heart failure. There is a small right pleural effusion. 3. Bibasilar atelectasis. 4. Other findings as noted. Reading Location: [id number]
== END | disposition home or self-care (01) ==
LOC: CT 14:26
PROVIDERS: PCP Family Medicine; Referring Provider Nurse Practitioner Acute Care; Visit Provider Nurse Practitioner Acute Care
DX: R91.1 Solitary pulmonary nodule (principal)
CPT/HCPCS: 71250

== ENCOUNTER → 2025-06-12 | Outpatient (CLI) | payer MEDICARE, SELFPAY ==
--- NOTE | 2025-06-12 18:21 | CT_ITS ---
PROCEDURE: LOW DOSE CT LUNG SCREENING 06/12/2025 REASON FOR EXAM: HISTORY OF SMOKING TECHNIQUE: LOW DOSE CT LUNG SCREENING Coronal and Sagittal reconstruction series were provided. One or more dose reduction techniques were used (e.g., Automated exposure control, adjustment of the mA and/or kV according to patient size, use of iterative reconstruction technique). REFERENCE LINK: [employer] Lung-RADS RADIATION DOSE SUMMARY: CTDlvol: 4 mGy DLP: 127 mGycm COMPARISON: 01/24/2025, 05/07/2025 FINDINGS: Central airways are patent. Under aerated lung bases. Mild emphysema. No consolidation, effusion, or pneumothorax. On the left, series 2, image 180, 9 mm noncalcified lower lobe nodule, stable. Series 601, image 228, 4 mm noncalcified lower lobe nodule, stable On the right, series 2, image 72, 5 mm pleural-based upper lobe nodular density, stable. Image 170, 4 mm noncalcified right middle lobe nodule, stable. Unremarkable base of neck and axilla. Thoracic spine degeneration. Normal esophagus. Upper limits of normal heart size. No acute vascular pathology. No acute chest wall findings. No acute upper abdominal findings. CT/Low Dose CT Lung Screening IMPRESSION: Stable bilateral noncalcified lung nodules. Recommend annual screening with lo w-dose chest CT. Lung-RADS Category: 2 Other Significant Findings: Reading Location: [place] [id number]
== END | disposition home or self-care (01) ==
LOC: CT 18:19
PROVIDERS: PCP Family Medicine; Referring Provider Nurse Practitioner Acute Care; Visit Provider Nurse Practitioner Acute Care
DX: F17.210 Nicotine dependence, cigarettes, uncomplicated (principal)
CPT/HCPCS: 71271